=== PATIENT | male | born 1935 | race Caucasian/White ===

== ENCOUNTER 2016-04-19 01:32 | Inpatient (IN) ==
--- NOTE | 2016-04-19 02:07 | Emergency Department Note ---
Weakness HPI - General Chief complaint: Weakness Stated complaint: weakness Time Seen by Provider: 04/19/16 01:51 Source: patient Mode of arrival: ambulatory Limitations: no limitations - History of Present Illness HPI Narrative: 81-year-old male having increased weakness. Been treated by wound care, IV antibiotics in his right lower leg with 2 IV antibiotics. Patient was also seen on 04/16. for uti and treated with Macrobid. In addition to the IV antibiotics. Initial culture reveals Proteus awaiting for results of the sensitivity. Patient is afebrile. Denies any cough denies pain patient will be undergoing hyperbaric's at wound care soon. on Daptomycin and Maxipen outpatient daily. - Related Data Home Medications Medication Instructions Recorded Confirmed Ascorbic Acid [Vitamin C] 1,000 mg PO DAILY 03/21/16 03/24/16 Atorvastatin [Lipitor] 10 mg PO HS 03/21/16 03/24/16 Brimonidine Tartrate/Timolol 1 drop BOTH EYES DAILY 03/21/16 03/24/16 [Combigan Eye Drops] Esomeprazole Magnesium [Nexium] 40 mg PO DAILY 03/21/16 03/24/16 Ferrous Gluconate [Fergon] 324 mg PO BID 03/21/16 03/24/16 Fesoterodine Fumarate [Toviaz] 4 mg PO DAILY 03/21/16 03/24/16 Furosemide [Lasix] 40 mg PO DAILY 03/21/16 03/24/16 Insulin Glargine, Human [Lantus] 29 unit SQ DAILY 03/21/16 03/24/16 Minocycline [Minocin] 100 mg PO BID 03/21/16 03/24/16 Sertraline [Zoloft] 25 mg PO DAILY 03/21/16 03/24/16 Tamsulosin [Flomax] 0.4 mg PO HS 03/21/16 03/24/16 Travoprost Ophth Drops [Travatan Z 1 drop AU HS 03/21/16 03/24/16 Ophth Drops] glyBURIDE [Diabeta] 5 mg PO BIDAC 03/21/16 03/24/16 Previous Rx's Medication Instructions Recorded Nitrofurantoin Sr [Macrobid] 100 mg PO BID #20 capsule NS 04/16/16 Allergies Allergy/AdvReac Type Severity Reaction Status Date / Time No Known Drug Allergies Allergy Verified 01/08/17 09:49 Review of Systems All systems ED: reviewed and negative except as stated. Constitutional: Denies: fever, chills Eyes: Denies: eye pain ENT ED: Denies: ear pain Cardiovascular: Denies: chest pain Respiratory: Denies: cough Gastrointestinal: Denies: abdominal pain Genitourinary: Denies: urgency Musculoskeletal: Reports: as per HPI. Denies: back pain Integumentary: Denies: rash Neurological: Denies: headache Psychiatric: Denies: anxiety Endocrine: Denies: fatigue Hematological/Lymphatic: Denies: easy bleeding Allergic/Immunologic: Denies: facial swelling Past Medical History - Past Medical History Medical history: Reports: diabetes (insulin-dependent), hyperlipidemia, hypertension, TIA, other (large prostate) Surgical history ED: Reports: angioplasty/stent, cataract - Social History Alcohol use: Reports: None Drug use: Reports: none Physical Exam - General Limitations: no limitations General appearance: alert - Head Head exam: atraumatic - Eye Eye exam: Present: normal appearance, PERRL - ENT ENT exam: normal exam, normal oropharynx - Neck Neck exam: Present: normal inspection, full ROM, trachea midline - Chest Chest inspection: Present: normal inspection, symmetric chest wall rise - Respiratory Respiratory exam: Present: normal lung sounds bilaterally. Absent: respiratory distress - Cardiovascular Cardiovascular exam: Present: regular rate, normal rhythm - Abdominal Exam Abdominal exam: Present: soft. Absent: distention, tenderness - exam: Present: normal inspection - Extremities Exam Extremities exam: Present: normal inspection - Back Exam Back exam: Present: normal inspection, full ROM - Neurological Exam Neurological exam: Present: alert, oriented X3 - Psychiatric Psychiatric exam: Present: normal affect, normal mood - Skin Skin exam: Present: warm, dry, intact, normal color Course Vital Signs Temperature 96.9 F L 04/19/16 01:33 Pulse Rate 69 04/19/16 01:33 Respiratory Rate 18 04/19/16 01:33 Blood Pressure 101/57 04/19/16 01:33 Pulse Oximetry (%) 99 04/19/16 01:33 Temperature 97.3 F L 04/19/16 04:41 Pulse Rate 74 04/19/16 07:36 Respiratory Rate 18 04/19/16 01:33 Blood Pressure 139/71 04/19/16 07:36 Pulse Oximetry (%) 99 04/19/16 07:36 Weakness - MDM Narrative Medical decision making narrative: Chest x-ray and laboratory tests are normal. Vital signs are stable. However, patient has been increasingly weak Dr Shin contacted and he will consult on patient. Dr Jackman contacted and patient admitted - Lab Data Result diagrams: 04/19/16 02:45 04/19/16 02:45 Lab Results 04/19/16 04/19/16 04/19/16 Range/Units 02:45 02:45 02:45 WBC 8.8 (4.5-11.0) K/mcL RBC 3.21 L (4.50-5.90) M/mcL Hgb 9.2 L (13.5-16.5) g/dL Hct 28.3 L (41.0-55.0) % MCV 88.3 (80.0-100.0) fL MCH 28.8 (26.0-34.0) pg MCHC 32.6 (31.0-36.0) g/dL RDW 17.1 H (11.5-14.5) % Plt Count 260 (140-440) K/mcL MPV 6.8 L (7.4-10.4) fL Total Counted 100 Seg Neutrophils % 54 (38-78) % Band Neutrophils % Not Reportable Lymphocytes % 36 (15-49) % Monocytes % (Manual) 6 (1-9) % Eosinophils % (Manual) 4 (0-7) % Platelet Estimate Normal (NORMAL) RBC Morphology Abnorm A (NORMAL) Anisocytosis 1+ A (NONE SEEN) VBG Lactic Acid 1.1 (0.5-2.2) mmol/L Sodium 134 (133-145) mmol/L Potassium 4.0 (3.3-5.1) mmol/L Chloride 93 L (96-108) mmol/L Carbon Dioxide 29 (22-30) mmol/L Anion Gap 12.0 (8-16) BUN 38 H (8-23) mg/dl Creatinine 1.6 H (0.7-1.2) mg/dl GFR Calculation 39 Glucose 217 H (70-105) mg/dL Calcium 8.6 (8.6-10.4) mg/dl Total Bilirubin 0.2 (0.0-1.0) mg/dL AST 37 (0-37) U/l ALT 18 (0-40) U/l Alkaline Phosphatase 91 (39-117) U/L Total Protein 6.6 (5.9-8.4) gm/dL Albumin 3.2 (3.2-5.2) gm/dL Globulin 3.4 (2.2-3.7) gm/dL Albumin/Globulin Ratio 0.9 L (1.0-2.3) Urine Color Urine Appearance Urine pH (5.0-9.0) Ur Specific [place] (1.000-1.035) Urine Protein (NEG) mg/dL Urine Glucose (UA) (NEG) mg/dL Urine Ketones (NEG) mg/dL Urine Occult Blood (<0.03) mg/dL Urine Nitrate (NEG) Urine Bilirubin (NEG) mg/dL Urine Urobilinogen (NEG) mg/dL Ur Leukocyte Esterase (NEG) /uL Urine RBC (0-1) /hpf Urine WBC (0-4) /hpf Ur Squamous Epith Cells (0-4) /hpf Ur Transition Epith Cell (0-2) /hpf Urine Bacteria (0) /hpf Hyaline Casts (0-2) /lpf Urine Mucus (0) /hpf Ur Culture Indicated? 04/19/16 Range/Units 03:08 WBC (4.5-11.0) K/mcL RBC (4.50-5.90) M/mcL Hgb (13.5-16.5) g/dL Hct (41.0-55.0) % MCV (80.0-100.0) fL MCH (26.0-34.0) pg MCHC (31.0-36.0) g/dL RDW (11.5-14.5) % Plt Count (140-440) K/mcL MPV (7.4-10.4) fL Total Counted Seg Neutrophils % (38-78) % Band Neutrophils % Lymphocytes % (15-49) % Monocytes % (Manual) (1-9) % Eosinophils % (Manual) (0-7) % Platelet Estimate (NORMAL) RBC Morphology (NORMAL) Anisocytosis (NONE SEEN) VBG Lactic Acid (0.5-2.2) mmol/L Sodium (133-145) mmol/L Potassium (3.3-5.1) mmol/L Chloride (96-108) mmol/L Carbon Dioxide (22-30) mmol/L Anion Gap (8-16) BUN (8-23) mg/dl Creatinine (0.7-1.2) mg/dl GFR Calculation Glucose (70-105) mg/dL Calcium (8.6-10.4) mg/dl Total Bilirubin (0.0-1.0) mg/dL AST (0-37) U/l ALT (0-40) U/l Alkaline Phosphatase (39-117) U/L Total Protein (5.9-8.4) gm/dL Albumin (3.2-5.2) gm/dL Globulin (2.2-3.7) gm/dL Albumin/Globulin Ratio (1.0-2.3) Urine Color Yellow Urine Appearance Clear Urine pH 6.0 (5.0-9.0) Ur Specific [place] 1.014 (1.000-1.035) Urine Protein Neg (NEG) mg/dL Urine Glucose (UA) >=500 A (NEG) mg/dL Urine Ketones Neg (NEG) mg/dL Urine Occult Blood 0.2 A (<0.03) mg/dL Urine Nitrate Neg (NEG) Urine Bilirubin Neg (NEG) mg/dL Urine Urobilinogen Neg (NEG) mg/dL Ur Leukocyte Esterase Neg (NEG) /uL Urine RBC 18 H (0-1) /hpf Urine WBC 2 (0-4) /hpf Ur Squamous Epith Cells < 1 (0-4) /hpf Ur Transition Epith Cell < 1 (0-2) /hpf Urine Bacteria 0 (0) /hpf Hyaline Casts 3 H (0-2) /lpf Urine Mucus Few (0) /hpf Ur Culture Indicated? No Disposition Clinical Impression: Cellulitis Summary: failed outpatient therapy maxipine and daptomycin Disposition: Xfer As Outpt/Obs ([facility]) Referrals: Ashely Dunham ARNP [Primary Care Provider] -
[2016-04-19 03:58] LABS: Mean Cell Volume 88.3 fL (80.0-100.0); Mean Corpuscular HGB Conc 32.6 g/dL (31.0-36.0); Mean Corpuscular Hemoglobin 28.8 pg (26.0-34.0); Platelet Count 260 K/mcL (140-440); RBC 3.21 M/mcL (4.50-5.90); Red Cell Distribution Width 17.1 % (11.5-14.5)
[2016-04-19 04:00] LABS: Appearance,Urine CLEAR; Bacteria,Urine 0 /hpf (0); Bilirubin,Urine NEG (NEG); Color,Urine YELLOW; Glucose,Urine (UA) >=500 mg/dL (NEG); Leukocyte Esterase,Urine NEG /uL (NEG); Mucus,Urine FEW /hpf (0); Nitrate,Urine NEG (NEG); Protein,Urine NEG (NEG); Specific Gravity,Urine 1.014 (1.000-1.035); Urine Blood 0.2 mg/dL (<0.03); Urine Hyaline Cast 3 /lpf (0-2); Urine RBC 18 /hpf (0-1); Urine Squamous Epithelial Cell < 1 /hpf (0-4); Urine Transitional Epi Cells < 1 /hpf (0-2); Urine WBC 2 /hpf (0-4); Urobilinogen,Urine NEG (NEG)
[2016-04-19 04:01] LABS: ALT/SGPT 18 U/l (0-40); Albumin 3.2 gm/dL (3.2-5.2); Albumin/Globulin Ratio 0.9 (1.0-2.3); Alkaline Phosphatase 91 U/L (39-117); Blood Urea Nitrogen 38 mg/dl (8-23)
[2016-04-19 04:28] LABS: Anisocytosis 1+ (NONE SEEN); Eosinophils % (Manual) 4 % (0-7); Lymphocytes % 36 % (15-49); Monocytes % (Manual) 6 % (1-9); Platelet Estimate NORMAL (NORMAL); RBC Morphology ABNORM (NORMAL); Segmented Neutrophils % 54 % (38-78)
--- NOTE | 2016-04-19 05:45 | XRay Report ---
CLINICAL INFORMATION: Chest pain TECHNIQUE: AP portable upright chest x-ray COMPARISON: 03/21/2016 FINDINGS: Right-sided PICC line with its tip superior vena cava. Mildly elevated left hemidiaphragm, unchanged. No acute or focal pulmonary parenchymal infiltrate or mass. Lungs are negative. Heart size and vascularity are normal. No pulmonary congestion. No pulmonary edema. IMPRESSION: No acute abnormality. No interval change since 03/21/2016. Interpreted and Authenticated by: Ernst Milligan 04/19/16
[2016-04-19] MEDS ORDERED: 0.9 % SODIUM CHLORIDE 1,000 ML IV ONE ×3 (06:44→18:06)
[2016-04-19] MEDS ORDERED: ONDANSETRON 4 MG/2 ML VIAL IV PRN (09:19)
[2016-04-19] MEDS ORDERED: VANCOMYCIN PER PHARMACY IV ONE (09:19)
[2016-04-19] MEDS ORDERED: ACETAMINOPHEN 1,000 MG/100 ML BOTTLE IV PRN (09:19)
[2016-04-19] MEDS ORDERED: DEXTROSE 50% 50 ML VIAL IV PRN (09:19)
[2016-04-19] MEDS ORDERED: ACETAMINOPHEN 325 MG TABLET PO PRN (09:19)
[2016-04-19] MEDS ORDERED: BISACODYL 10 MG SUPP.RECT PR PRN (09:19)
[2016-04-19 09:58] LABS: C-Reactive Protein 1.3 mg/dl (0.0-0.8)
[2016-04-19] MEDS: 0.9 % SODIUM CHLORIDE 1,000 ML IV SCH (10:53)
[2016-04-19] MEDS: CEFEPIME 1 GM in DEXTROSE 5% IN WATER 50 ML IV SCH (10:54)
[2016-04-19] MEDS: sitaGLIPtin 50 MG TABLET PO SCH (11:09)
[2016-04-19] MEDS: HEPARIN 5,000 UNIT/ML VIAL SQ SCH ×2 (11:09→21:51)
[2016-04-19] MEDS: FOLIC ACID 1 MG TABLET PO SCH (11:10)
[2016-04-19] MEDS: MULTIVIT,THER IRON,CA,FA & MIN 1 TABLET PO SCH (11:10)
[2016-04-19] MEDS: DOCUSATE SODIUM 100 MG CAPSULE PO SCH ×2 (11:10→21:53)
[2016-04-19] MEDS: DAPTOmycin 500 MG VIAL IV SCH (11:24)
--- NOTE | 2016-04-19 12:47 | History and Physical Report ---
DATE OF ADMISSION: 04/19/2016 REASON FOR ADMISSION: Weakness, unable to function. HISTORY OF CHIEF COMPLAINT: The patient is an 81-year-old diabetic with a history of diabetic neuropathy who developed a puncture wound right foot around early February when he was out barefoot and likely stepped on a sharp object. He, however, did not realize until 2 to 3 weeks when he was noted a significantly swollen, red right heel/midfoot at the primary care doctor's office. He was subsequently referred for evaluation and was found to have osteomyelitis of the calcaneus along with deep abscess on the MRI of 03/14. The patient subsequently underwent wound care treatment along with antibiotics. He was initially started on vancomycin and Invanz. However, he had an adverse reaction to Invanz, subsequently changed to Levaquin and vancomycin by Dr. Henry. This was continued until 04/12 when due to failure of response he was switched to daptomycin and cefepime. The patient has been getting IV antibiotics at the IV infusion center along with wound care management per Dr. Morris. Over the last couple of days, the patient has been getting progressively weak, unable to function, unable to ambulate, and with worsening symptoms came to [facility] Room. In addition to cefepime and vancomycin, he is also on Macrobid for a recent UTI on 04/16. In the ER, initial workup was essentially unremarkable with a white count of 8000. ESR 58. Normal lactic acid and normal biochemical profile except for creatinine of 1.6, which has been around baseline over the last month around 1.5. CRP 1.3. Hospitalist Service was consulted on recommendation of wound care physician in light of failure to respond to antibiotics, persistent osteomyelitis and diabetic heel ulcer and requirement for hyperbaric oxygen treatment. At the time of examination, the patient is alert, oriented, and accompanied with his granddaughter. He was able to provide answers to most of the questions. He denies fever, shaking chills, or drenching sweats. He further denies weight loss, glandular swelling, diarrhea, dysuria, headache, photophobia, chest pain, shortness of breath. He also denies skin rash and joint swelling. REVIEW OF SYSTEMS: Ten-point review of system was performed and negative except the ones discussed above. PAST MEDICAL HISTORY: 1. History of diabetes mellitus type 2. 2. Diabetic neuropathy. 3. Recent osteomyelitis. 4. BPH. 5. Anxiety disorder. 6. Glaucoma. 7. GERD. CURRENT MEDICATIONS: 1. Travatan both eyes. 2. Combigan both eyes. 3. Metronidazole 500 mg b.i.d. 4. Esomeprazole 40 mg daily. 5. Nitrofurantoin 100 mg b.i.d. 6. Atorvastatin 10 mg at bedtime. 7. Travoprost at bedtime. 8. Tamsulosin 0.4 mg. 9. Sertraline 25 mg. 10. Furosemide 40 mg. 11. Ferrous gluconate 324 mg. 12. Ascorbic acid 1000 mg. 13. Minocycline 100 mg b.i.d. 14. Glyburide 5 mg b.i.d. 15. Glargine 29 units daily. SOCIAL HISTORY: The patient lives currently with his son and recently he was living with his daughter. He has been to multiple places, originally from [place] and then has been moved since his in 2009 to [place], [place], [place] and back in [place]. No history of smoking or alcoholism. She sees primary care physician, SIERRA Warren. FAMILY HISTORY: Significant for sister with multiple sclerosis. PHYSICAL EXAMINATION: GENERAL: The patient is alert and oriented. He denies any active distress. BMI 22. Height 6 feet 2 inches. VITAL SIGNS: Blood pressure 137/76, respiratory rate 20, temperature 97.4, pulse 76, and saturation 97% on room air. HEENT: Pupils symmetric. Oral cavity is dry. No ear or nose discharge. Head is normocephalic and atraumatic. NECK: No lymphadenopathy. HEART: S1, S2, regular rhythm. Ejection systolic murmur grade 1. Diminished breath sounds at bases. ABDOMEN: Soft and nontender. LOWER EXTREMITIES: Right lower extremity heel along with foot covered in sterile dressing, erythema around induration and swelling extended up to 10 cm above the ankle on the right side. Left lower extremity, no signs of skin changes, joint swelling or erythema. No cyanosis or clubbing. No lymphedema. PSYCH: Alert and cooperative. No anxiety. NEURO: Nonfocal, moving all four extremities. LABS AND IMAGING: White count 8.8, hemoglobin 9.2, platelets 260. ESR 58. Lactic acid 1.1. Sodium 130, potassium 4.4, creatinine 1.6, BUN 38. CRP 1.3. UA unremarkable. X-ray chest: No acute process. ASSESSMENT AND PLAN: An 81-year-old with calcaneal osteomyelitis and foot abscess on long-term antibiotic coverage managed as an outpatient. Now is admitted with inability to bear weight, weakness and worsening lower extremity cellulitis. 1. Right lower extremity cellulitis with calcaneal osteomyelitis/midfoot abscess. Continue cefepime along with daptomycin as per Dr. Henry. The patient will continue wound care along with dressings and debridement as needed by Dr. Morris and will also receive hyperbaric oxygen treatments. 2. Other prior medical issues, including: a. History of diabetes mellitus type 2. Continue basal prandial insulin/sitagliptin. b. History of chronic kidney disease, creatinine at baseline. Likely secondary to diabetic nephropathy. c. Anxiety disorder. Continue sertraline. d. Glaucoma. Continue travoprost. e. BPH. Continue tamsulosin. f. Hyperlipidemia. Continue statin. PLAN FOR TODAY: 1. Admit as inpatient. 2. Wound Care consult. 3. Continue antibiotic coverage as per Infectious Disease specialist Dr. Henry's recommendation, including daptomycin and cefepime. 4. DVT prophylaxis on heparin. 5. Preexisting medical condition management as above. AA:[email or web address] Job ID: [id number] Doc ID: [id number] Toni Dunham NP MTDD
[2016-04-19] MEDS: 0.9 % SODIUM CHLORIDE 10 ML SYRINGE IV SCH ×2 (14:57→22:02)
[2016-04-19] MEDS: INSULIN LISPRO 1 UNIT/0.01 ML UNIT SQ SCH ×3 (14:57→21:53)
--- NOTE | 2016-04-19 16:44 | General Surgery Consult Note ---
History of Present Illness Patient information: Note initiated : 04/19/16 at 4:41 pm Service Date, if different from initiated Date: [] Patient: Roverto Marley 81 y/o M admitted on 04/19/16 for weakness. Chief Complaint: [] Requesting physician: Toni Lao History of present illness: Extreme weakness and frequent falls. DFU, Right ankle with osteomyelitis Calcaneal / Talus area. Open wound lateral aspect of right heel. Medications and Allergies Home Medications Medication Instructions Recorded Confirmed Type Ascorbic Acid [Vitamin C] 1,000 mg PO DAILY 03/21/16 04/19/16 History Atorvastatin [Lipitor] 10 mg PO HS 03/21/16 04/19/16 History Esomeprazole Magnesium [Nexium] 40 mg PO DAILY 03/21/16 04/19/16 History Ferrous Gluconate [Fergon] 324 mg PO BID 03/21/16 04/19/16 History Furosemide [Lasix] 40 mg PO DAILY 03/21/16 04/19/16 History Insulin Glargine, Human [Lantus] 29 unit SQ DAILY 03/21/16 04/19/16 History Minocycline [Minocin] 100 mg PO BID 03/21/16 04/19/16 History Sertraline [Zoloft] 25 mg PO DAILY 03/21/16 04/19/16 History Tamsulosin [Flomax] 0.4 mg PO HS 03/21/16 04/19/16 History Travoprost Ophth Drops [Travatan Z 1 drop AU HS 03/21/16 04/19/16 History Ophth Drops] glyBURIDE [Diabeta] 5 mg PO BIDAC 03/21/16 04/19/16 History Combigan 0.2%-0.5% Eye Drops 1 drop BOTH EYES BID 04/19/16 04/19/16 History Travatan Z Ophth Drops 1 drop BOTH EYES HS 04/19/16 04/19/16 History metroNIDAZOLE 500 mg PO BID 04/19/16 04/19/16 History Allergies Allergy/AdvReac Type Severity Reaction Status Date / Time No Known Drug Allergies Allergy Verified 03/24/16 09:49 Exam Temp Pulse Resp BP Pulse Ox 97.0 F L 84 16 138/60 94 04/19/16 12:10 04/19/16 12:10 04/19/16 12:10 04/19/16 12:10 04/19/16 12:10 - General physical appearance well developed, well nourished, moderate pain, chronically ill, other ( frequent falling at home) - Eyes PERRL, normal ocular movement - ENT normal pinna, normal nares, normal mucosa, no congestion - Head Head exam IM: Present: atraumatic, normal inspection, normocephalic - Neck no masses, no bruits, trachea midline, no lymphadectomy, no venous distension - Cardiovascular Cardiovascular exam IM: Present: normal rate and rhythm - Respiratory normal expansion, clear to auscultation - Abdomen Abdomen: Present: soft, non tender, bowel sounds - Integumentary Present: other (ulcerated wound lateral aspect of the right ankle, below the lateral malleolus. This leads into a cavity of osteomyelitis and has intermittent drainage of sequestrated material) - Neurologic Present: confused (Non focal and non-lateralizing neurological examination), other - Musculoskeletal Present: other (Spinal curvature deformities. needs a front wheel walkerfor support during ambulation. Healing and improving superficial abrasions of fore arms. ) - Psychiatric Present: oriented to time, oriented to person, speech is normal Results - Labs 04/20/16 05:55 04/20/16 05:55 All other labs normal. Assessment and Plan (1) Diabetes mellitus with foot ulcer due to multiple causes Status: Acute Priority: High
[2016-04-19] MEDS ORDERED: glyBURIDE 5 MG TABLET PO SCH (17:00)
[2016-04-19] MEDS ORDERED: TRAVOPROST OPHTH DROPS BOTTLE 2.5ML OU SCH (21:00)
[2016-04-19] MEDS: ATORVASTATIN 20 MG TABLET PO SCH (21:52)
[2016-04-19] MEDS: TAMSULOSIN 0.4 MG CAPSULE PO SCH (21:52)
[2016-04-19] MEDS: SENNOSIDES/DOCUSATE SODIUM 1 TAB TABLET PO SCH (21:52)
[2016-04-19] MEDS: TRAVOPROST OPHTH DROPS BOTTLE 2.5ML OU SCH (21:59)
[2016-04-20] MEDS: 0.9 % SODIUM CHLORIDE 10 ML SYRINGE IV SCH ×3 (05:33→22:00)
[2016-04-20] MEDS: 0.9 % SODIUM CHLORIDE 1,000 ML IV SCH (05:33)
[2016-04-20 08:26] LABS: Mean Cell Volume 86.7 fL (80.0-100.0); Mean Corpuscular HGB Conc 33.6 g/dL (31.0-36.0); Mean Corpuscular Hemoglobin 29.1 pg (26.0-34.0); Platelet Count 186 K/mcL (140-440); RBC 2.82 M/mcL (4.50-5.90); Red Cell Distribution Width 16.2 % (11.5-14.5)
[2016-04-20 08:36] LABS: ALT/SGPT 18 U/l (0-40); Albumin 2.7 gm/dL (3.2-5.2); Albumin/Globulin Ratio 0.9 (1.0-2.3); Alkaline Phosphatase 70 U/L (39-117); Bilirubin,Direct < 0.2 mg/dL (0.0-0.3); Blood Urea Nitrogen 27 mg/dl (8-23); Gamma Glutamyl Transpeptidase 14 U/L (8-61); Magnesium 2.2 mg/dL (1.6-2.5); Phosphorous 2.6 mg/dL (2.7-4.5); Uric Acid 4.9 mg/dL (2.5-8.0)
[2016-04-20] MEDS: INSULIN LISPRO 1 UNIT/0.01 ML UNIT SQ SCH ×4 (08:36→21:37)
[2016-04-20] MEDS: INSULIN GLARGINE, HUMAN 1 UNIT/0.01 ML SQ SCH (08:37)
[2016-04-20] MEDS: CEFEPIME 1 GM in DEXTROSE 5% IN WATER 50 ML IV SCH (08:38)
[2016-04-20] MEDS: HEPARIN 5,000 UNIT/ML VIAL SQ SCH ×2 (08:38→21:37)
[2016-04-20] MEDS: PANTOPRAZOLE 40 MG TABLET PO SCH (08:41)
[2016-04-20] MEDS: DOCUSATE SODIUM 100 MG CAPSULE PO SCH ×2 (08:41→21:37)
[2016-04-20] MEDS: MULTIVIT,THER IRON,CA,FA & MIN 1 TABLET PO SCH (08:43)
[2016-04-20] MEDS: sitaGLIPtin 50 MG TABLET PO SCH (08:43)
[2016-04-20] MEDS: ASCORBIC ACID 500 MG TABLET PO SCH (08:43)
[2016-04-20] MEDS: FOLIC ACID 1 MG TABLET PO SCH (08:44)
[2016-04-20] MEDS: SERTRALINE 50 MG TABLET PO SCH (08:44)
[2016-04-20] MEDS: FUROSEMIDE 40 MG TABLET PO SCH (08:45)
[2016-04-20 08:55] LABS: Hemoglobin A1C 8.2 % HGB (4.0-6.0)
[2016-04-20] MEDS ORDERED: ESOMEPRAZOLE MAGNESIUM 40 MG PO SCH (09:00)
[2016-04-20 09:10] LABS: Anisocytosis 1+ (NONE SEEN); Eosinophils % (Manual) 1 % (0-7); Lymphocytes % 35 % (15-49); Monocytes % (Manual) 7 % (1-9); Platelet Estimate NORMAL (NORMAL); RBC Morphology ABNORM (NORMAL); Segmented Neutrophils % 57 % (38-78)
[2016-04-20] MEDS: DAPTOmycin 500 MG VIAL IV SCH (11:14)
[2016-04-20] MEDS ORDERED: 0.9 % SODIUM CHLORIDE 250 ML IV SCH (13:00)
--- NOTE | 2016-04-20 13:14 | Internal Med Progress Note ---
Medical - PN: Subj Patient information: Note initiated : 04/20/16 at 1:10 pm Service Date, if different from initiated Date: [] Patient: Roverto Marley 81 y/o M admitted on 04/19/16 for weakness. Chief Complaint: [] Interval history: The patient seen examined, patient had one episode of low bp responded well to 1L IV normal saline. Pt denies any new symptoms, feels doing ok The son was at bedside today, he noted that the patient has been having this infection since february and has been on antibiotics, the main reason he was brought in was worsening fatigue and debility. The patient also had an episode of syncope while he was there. Patient was sitting in the chair when he passed out for a min or so, the patient had no abnormal jerking movements, no loss of bowel bladder continence, however wears depends so not sure. The patient has had these syncope events in the past, when [facility], and has bee worked for [employer] there, As per the family mri and ct head were negative for TIA or CVA. The patient was also recently treated for a UTI with macrobid. Labs revwied Hb low at 8.2, chemistry ok ck ok cultures negative Pertinent ROS: Denies headache, dizziness Denies chest pain, palpitations Does admit to intermittent chest tightness, unrelated to activity. Denies cough or shortness of breath Denies abdominal pain, nausea or vomiting. no black stools, no blood in stools. - Constitutional Vitals: Vital Signs Temp Pulse Resp BP Pulse Ox 97.5 F L 70 14 102/64 97 04/20/16 12:00 04/20/16 12:00 04/20/16 12:00 04/20/16 12:00 04/20/16 12:00 Period Temp Pulse Resp BP Sys/Saucedo Pulse Ox Last 24 Hr 97.5 F-98.6 F 70-97 14-24 85-116/46-64 93-100 Intake and Output 04/19/16 04/20/16 04/20/16 21:59 05:59 13:59 Intake Total 600 / 600 1200 / 1200 720 / 720 Output Total 500 / 500 401 / 401 125 / 125 Balance 100 / 100 799 / 799 595 / 595 Weight 174 lb 174 lb Patient Weight 02/05/17 05:59 Weight 174 lb Intake & Output: Intake & Output 04/19/16 04/20/16 04/20/16 21:59 05:59 13:59 Intake Total 600 / 600 1200 / 1200 720 / 720 Output Total 500 / 500 401 / 401 125 / 125 Balance 100 / 100 799 / 799 595 / 595 Weight 174 lb 174 lb Intake: IV 1000 / 1000 Sodium Chloride 0.9% 1, 1000 / 1000 000 ml @ 50 mls/hr IV . Q20H [facility] Rx#:[id number] Oral 600 / 600 200 / 200 720 / 720 Output: Void Amount 500 / 500 400 / 400 125 / 125 # of times incontinent of urine Other: Meal Dinner Breakfast Percent of Meal Consumed 100% 100% Feeding Ability Independent Independent Exam: Constitutional; Afebrile, cooperative, alert, not in distress. Eyes- No icterus, Pupils equal, reactive, No periorbital swelling Ears- Ext ear normal, Neck- Midline trachea, supple Respiratory system: Air Entry equal on both sides, No crackles or wheezing, no rhonchi. CVS- Rate rhythm regular, S1,S2 heard, distant heart sounds. 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 Medical - PN: Obj Da - Labs CBC & Chem 7: 04/20/16 05:55 04/20/16 05:55 Labs: Abnormal Lab Results 04/20/16 04/20/16 04/20/16 05:55 05:55 05:54 RBC 2.82 L Hgb 8.2 L Hct 24.5 L RDW 16.2 H MPV 7.2 L RBC Morphology Abnorm A Anisocytosis 1+ A BUN 27 H Creatinine 1.3 H Glucose 144 H Hemoglobin A1c 8.2 H Calcium 8.2 L Phosphorus 2.6 L Total Protein 5.6 L Albumin 2.7 L Albumin/Globulin Ratio 0.9 L Meds: Medications Acetaminophen (Tylenol) 650 mg PO Q4-6HP PRN PRN Reason: PAIN/FEVER > 101 Ascorbic Acid (Vitamin C) 1,000 mg PO DAILY [facility] Last Admin: 04/20/16 08:43 Dose: 1,000 mg Atorvastatin Calcium (Lipitor) 10 mg PO HS [facility] Last Admin: 04/19/16 21:52 Dose: 10 mg Bisacodyl (Dulcolax) 10 mg ID Q2-3DAYS PRN PRN Reason: Constipation Daptomycin (Cubicin) 500 mg IV DAILY [facility] Last Admin: 04/20/16 11:14 Dose: 500 mg Dextrose (Dextrose 50%) 0 ml IV UD PRN PRN Reason: Hypoglycemia Diagnostic Test (Pha) (Accu-Chek) 1 each FS ACHS [facility] Last Admin: 04/20/16 12:22 Dose: 1 each Docusate Sodium (Colace) 100 mg PO BID [facility] Last Admin: 04/20/16 08:41 Dose: 100 mg Folic Acid (Folic Acid) 1 mg PO DAILY [facility] Last Admin: 04/20/16 08:44 Dose: 1 mg Furosemide (Lasix) 40 mg PO DAILY [facility] Last Admin: 04/20/16 08:45 Dose: Not Given Heparin Sodium (Porcine) (Heparin) 5,000 unit SQ Q12 [facility] Last Admin: 04/20/16 08:38 Dose: 5,000 unit Sodium Chloride (Sodium Chloride 0.9%) 1,000 mls @ 50 mls/hr IV .Q20H [facility] Stop: 04/21/16 21:18 Last Admin: 04/20/16 05:33 Dose: 50 mls/hr Acetaminophen (Ofirmev) 1,000 mg in 100 mls @ 200 mls/hr IV Q6HP PRN PRN Reason: PAIN/FEVER > 101 Cefepime HCl 1 gm/ Dextrose 50 mls @ 100 mls/hr IV DAILY [facility] Last Admin: 04/20/16 08:38 Dose: 100 mls/hr Sodium Chloride (Sodium Chloride 0.9%) 250 mls @ 20 mls/hr IV .[id number] [facility] Stop: 04/21/16 01:29 Insulin Glargine (Lantus) 29 unit SQ DAILY [facility] Last Admin: 04/20/16 08:37 Dose: 29 unit Insulin Human Lispro (Humalog) 0 unit SQ ACHS [facility] PRN Reason: Protocol Last Admin: 04/20/16 12:22 Dose: 2 unit Iron Carb/Multivit/[place]/Folic Acid (Multivitamin W/Minerals) 1 tab PO DAILY [facility] Last Admin: 04/20/16 08:43 Dose: 1 tab Ondansetron HCl (Zofran) 4 mg IV Q4-6HP PRN PRN Reason: Nausea And Vomiting Pantoprazole Sodium (Protonix) 40 mg PO QAMAC [facility] Last Admin: 04/20/16 08:41 Dose: 40 mg Combigan 0.2%-0.5% (Eye Drops) 1 dose OU BID [facility] Last Admin: 04/20/16 08:37 Dose: 1 dose Senna/Docusate Sodium (Senna Plus Tablet) 1 tab PO HS [facility] Last Admin: 04/19/16 21:52 Dose: 1 tab Sertraline HCl (Zoloft) 25 mg PO DAILY [facility] Last Admin: 04/20/16 08:44 Dose: 25 mg Sitagliptin Phosphate (Januvia) 50 mg PO DAILY [facility] Last Admin: 04/20/16 08:43 Dose: 50 mg Sodium Chloride (Saline Flush) 10 ml IV Q8 [facility] Last Admin: 04/20/16 05:33 Dose: 10 ml Tamsulosin HCl (Flomax) 0.4 mg PO [facility] Last Admin: 04/19/16 21:52 Dose: 0.4 mg Travoprost (Travatan Z Ophth Drops) 1 gtt OU [facility] Last Admin: 04/19/16 21:59 Dose: 1 gtt Medical - PN: A/P - Time Spent With Patient Total time spent is greater than 50% in coordination of care (as documented) at patient's floor/unit and/or counseling patient: (1) Syncope and collapse Status: Acute Current Visit: Yes (2) Anemia Status: Acute Current Visit: Yes (3) Fatigue Status: Acute Current Visit: Yes (4) Cellulitis Status: Acute Current Visit: Yes (5) 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 Status: Acute Current Visit: Yes - Narrative A/P Narrative: Patient presents with cellutitis, not improving Ostemyeltis despite IV antibiotics On IV cefepime and daptomycin as per ID and Wound care clnic Glucose ok, d/c sitaglipitin while inpatient Syncope- MR head in past is negative, plan to repeat workup, get ekg, echo, carotid duplex, and CT head. Pt does have h/o cad and s/p stent placement, asa is not on the med list, hold off till we have FOB negative. already on statin. consider use of beta blockers if BP allows in future. 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 Fatigue, multifactorial, recovering from UTI, active osteomyelitis, Age, Anemia , are all possible, check tsh for now. DVT hep sq Diet Diabetic diet Plan for the patients wound care is to have HBOT by wound care clinic. Medical - PN: Qual - VTE Deep Vein Thrombosis/Pulmonary Embolism Present on Admission: No
--- NOTE | 2016-04-20 14:47 | Cat Scan Report ---
CLINICAL INFORMATION: Syncope COMPARISON: None. TECHNIQUE: Axial noncontrast-enhanced images through the brain. FINDINGS: No acute intracranial hemorrhage. No intra-axial hematoma. There is enlargement of the lateral ventricles. There is periventricular low-attenuation which may represent interstitial edema. Michael's index equals 0.36. This is abnormal and suggestive of normal pressure hydrocephalus. Clinical correlation for typical symptoms necessary. No well-defined intra-axial attenuation abnormality. No localized mass effect. No midline shift. Brainstem and cerebellum are negative. No extra-axial, intracranial abnormalities. No subdural hematoma. No subarachnoid hemorrhage. Basilar cisterns are normal. No calvarial lesion. Skull base is negative. IMPRESSION: 1. No acute intracranial abnormality. 2. Enlargement of the lateral ventricles. Correlation recommended for symptoms of normal pressure hydrocephalus. Interpreted and Authenticated by: Ernst Milligan 04/20/16
--- NOTE | 2016-04-20 17:06 | Ultrasound Report ---
CLINICAL INFORMATION: Syncope COMPARISON: None. TECHNIQUE: Carotid arteries were imaged in sagittal and transverse planes using 5 mHz linear probe: Doppler, color, and 2D. FINDINGS: There is mild atherosclerotic plaque in the distal common carotid artery, left worse than right. No evidence for ulceration. No significant flow disturbance. Maximum Systolic Flow Velocity: - Right common carotid artery: 73 cm/sec - Right internal carotid artery: 75 cm/sec - Left common carotid artery: 71 cm/sec - Left internal carotid artery: 79 cm/sec Vertebral arteries are antegrade patent bilaterally. IMPRESSION: 1. Mild atherosclerotic plaque in the proximal internal carotid arteries, left worse than right 2. No flow disturbance. No hemodynamically significant stenosis Interpreted and Authenticated by: Ernst Milligan 04/20/16
[2016-04-20] MEDS: TRAVOPROST OPHTH DROPS BOTTLE 2.5ML OU SCH (21:00)
[2016-04-20] MEDS: ATORVASTATIN 20 MG TABLET PO SCH (21:37)
[2016-04-20] MEDS: TAMSULOSIN 0.4 MG CAPSULE PO SCH (21:37)
[2016-04-20] MEDS: SENNOSIDES/DOCUSATE SODIUM 1 TAB TABLET PO SCH (21:37)
[2016-04-21] MEDS: 0.9 % SODIUM CHLORIDE 1,000 ML IV SCH (01:07)
[2016-04-21] MEDS: 0.9 % SODIUM CHLORIDE 10 ML SYRINGE IV SCH ×3 (05:20→21:10)
[2016-04-21 06:22] LABS: Mean Corpuscular HGB Conc 33.7 g/dL (31.0-36.0); Platelet Count 216 K/mcL (140-440); RBC 3.49 M/mcL (4.50-5.90); Red Cell Distribution Width 15.3 % (11.5-14.5)
[2016-04-21 06:54] LABS: ALT/SGPT 19 U/l (0-40); Albumin 2.7 gm/dL (3.2-5.2); Albumin/Globulin Ratio 0.8 (1.0-2.3); Alkaline Phosphatase 73 U/L (39-117); Bilirubin,Direct < 0.2 mg/dL (0.0-0.3); Blood Urea Nitrogen 24 mg/dl (8-23); Gamma Glutamyl Transpeptidase 16 U/L (8-61); Magnesium 2.2 mg/dL (1.6-2.5); Phosphorous 2.6 mg/dL (2.7-4.5); Uric Acid 4.6 mg/dL (2.5-8.0)
[2016-04-21] MEDS: PANTOPRAZOLE 40 MG TABLET PO SCH (07:32)
[2016-04-21] MEDS: INSULIN LISPRO 1 UNIT/0.01 ML UNIT SQ SCH ×4 (07:32→21:10)
[2016-04-21 07:43] LABS: Band Neutrophils % 1 % (0-10); Basophils % (Manual) 1 % (0-2); Eosinophils % (Manual) 2 % (0-7); Lymphocytes % 35 % (15-49); Monocytes % (Manual) 11 % (1-9); Platelet Estimate NORMAL (NORMAL); RBC Morphology NORMAL (NORMAL); Segmented Neutrophils % 50 % (38-78)
[2016-04-21] MEDS: CEFEPIME 1 GM in DEXTROSE 5% IN WATER 50 ML IV SCH (09:01)
[2016-04-21] MEDS: INSULIN GLARGINE, HUMAN 1 UNIT/0.01 ML SQ SCH (09:01)
[2016-04-21] MEDS: ASCORBIC ACID 500 MG TABLET PO SCH (09:02)
[2016-04-21] MEDS: FOLIC ACID 1 MG TABLET PO SCH (09:02)
[2016-04-21] MEDS: HEPARIN 5,000 UNIT/ML VIAL SQ SCH ×2 (09:02→21:10)
[2016-04-21] MEDS: FUROSEMIDE 40 MG TABLET PO SCH (09:03)
[2016-04-21] MEDS: SERTRALINE 50 MG TABLET PO SCH (09:03)
[2016-04-21] MEDS: MULTIVIT,THER IRON,CA,FA & MIN 1 TABLET PO SCH (09:03)
[2016-04-21] MEDS: DOCUSATE SODIUM 100 MG CAPSULE PO SCH ×2 (09:04→21:09)
[2016-04-21] MEDS: DAPTOmycin 500 MG VIAL IV SCH (09:11)
--- NOTE | 2016-04-21 12:02 | General Surgery Progress Note ---
Subjective Patient reports: other (Comfortable. Denies pain. OOB in Chair . Reading Bible. Transfused 2 units of PRBC overnight. AirCast boot X large at bedside for ambulation. Physical therapy on board. Spoke with [facility] Physical Therapist. ) Narrative: Note initiated : 04/21/16 at 12:00 pm Service Date, if different from initiated Date: [] Patient: Roverto Marley 81 y/o M admitted on 04/19/16 for weakness. Chief Complaint: [] Objective Temp Pulse Resp BP Pulse Ox 98.5 F 87 24 138/66 95 04/21/16 08:00 04/21/16 08:00 04/21/16 08:00 04/21/16 08:00 04/21/16 08:00 AVSS. MM pink. HD stable. Chest CTA. Soft abdomen. Skin left fore arm abrasions are clean and dry. Dressing right foot intact and in place. - Additional Data Intake & Output - Last 24 hours: Intake & Output 04/19/16 04/20/16 04/21/16 04/22/16 05:59 05:59 05:59 05:59 Intake Total 2850 / 2850 2345 / 2345 Output Total 901 / 901 376 / 376 Balance 194 / 1948 1968 / 1968 Weight 174 lb 173 lb 8 oz - Labs 04/21/16 04:50 04/21/16 04:50 Diabetes panel 04/21/16 Range/Units 04:50 Sodium 138 (133-145) mmol/L Potassium 4.6 (3.3-5.1) mmol/L Chloride 102 (96-108) mmol/L Carbon Dioxide 24 (22-30) mmol/L BUN 24 H (8-23) mg/dl Creatinine 1.4 H (0.7-1.2) mg/dl Glucose 105 (70-105) mg/dL Calcium 8.2 L (8.6-10.4) mg/dl AST 33 (0-37) U/l ALT 19 (0-40) U/l Alkaline Phosphatase 73 (39-117) U/L Total Protein 5.9 (5.9-8.4) gm/dL Albumin 2.7 L (3.2-5.2) gm/dL Triglycerides 63 (<150) mg/dl Thyroid panel 04/21/16 Range/Units 04:50 TSH 2.43 (0.27-5.01) uIU/ml Calcium panel 04/21/16 Range/Units 04:50 Calcium 8.2 L (8.6-10.4) mg/dl Phosphorus 2.6 L (2.7-4.5) mg/dL Albumin 2.7 L (3.2-5.2) gm/dL Pituitary panel 04/21/16 Range/Units 04:50 Sodium 138 (133-145) mmol/L Potassium 4.6 (3.3-5.1) mmol/L Chloride 102 (96-108) mmol/L Carbon Dioxide 24 (22-30) mmol/L BUN 24 H (8-23) mg/dl Creatinine 1.4 H (0.7-1.2) mg/dl Glucose 105 (70-105) mg/dL Calcium 8.2 L (8.6-10.4) mg/dl TSH 2.43 (0.27-5.01) uIU/ml Adrenal panel 04/21/16 Range/Units 04:50 Sodium 138 (133-145) mmol/L Potassium 4.6 (3.3-5.1) mmol/L Chloride 102 (96-108) mmol/L Carbon Dioxide 24 (22-30) mmol/L BUN 24 H (8-23) mg/dl Creatinine 1.4 H (0.7-1.2) mg/dl Glucose 105 (70-105) mg/dL Calcium 8.2 L (8.6-10.4) mg/dl Total Bilirubin 0.4 (0.0-1.0) mg/dL AST 33 (0-37) U/l ALT 19 (0-40) U/l Alkaline Phosphatase 73 (39-117) U/L Total Protein 5.9 (5.9-8.4) gm/dL Albumin 2.7 L (3.2-5.2) gm/dL Medical - PN: A/P - Time Spent With Patient Total time spent is greater than 50% in coordination of care (as documented) at patient's floor/unit and/or counseling patient: Patient seen with Dr. Godoy hospitalist. Progress reviewed with Nancy PAREKH IC. To check with ID for out patient f/U CM to arrange for transfer to a [facility] or SNF. HBO to be started next week. 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
[2016-04-21] MEDS ORDERED: 0.9 % SODIUM CHLORIDE 500 ML IV ONE (13:38)
--- NOTE | 2016-04-21 14:17 | Internal Med Progress Note ---
Medical - PN: Subj Patient information: Note initiated : 04/21/16 at 2:10 pm Service Date, if different from initiated Date: [] Patient: Roverto Marley 81 y/o M admitted on 04/19/16 for weakness. Chief Complaint: [] Interval history: The patient seen examined, no acute changes, s/p 2 units blood transfusion yesterday, he looks much better today, not sure if he feels a lot better as he has not been able to move much to tell us if his fatigue is any better He had low bp this afternoon, IV fluids given, lasix held. 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 - Constitutional Vitals: Vital Signs Temp Pulse Resp BP Pulse Ox 98.6 F 74 16 92/50 97 04/21/16 13:38 04/21/16 13:38 04/21/16 13:38 04/21/16 13:40 04/21/16 13:38 Period Temp Pulse Resp BP Sys/Saucedo Pulse Ox Last 24 Hr 97.8 F-99.4 F 74-89 16-24 78-154/46-98 94-98 Intake and Output 04/21/16 04/21/16 04/21/16 05:59 13:59 21:59 Intake Total 532 / 532 Output Total 250 / 250 Balance 282 / 282 Intake & Output: Intake & Output 04/21/16 04/21/16 04/21/16 05:59 13:59 21:59 Intake Total 532 / 532 Output Total 250 / 250 Balance 282 / 282 Intake: Oral 200 / 200 Blood Product 332 / 332 Output: Void Amount 250 / 250 Exam: Constitutional; Afebrile, cooperative, alert, not in distress. Eyes- No icterus, Pupils equal, reactive, No periorbital swelling Ears- Ext ear normal, hearing normal to conversation. Neck- Midline trachea, supple Respiratory system: Air Entry equal on both sides, No crackles or wheezing, no rhonchi. CVS- Rate rhythm regular, S1,S2 heard, distant heart sounds. 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 Medical - PN: Obj Da - Labs CBC & Chem 7: 04/21/16 04:50 04/21/16 04:50 Labs: Abnormal Lab Results 04/21/16 04/21/16 04/20/16 04:50 04:50 05:55 RBC 3.49 L Hgb 10.5 L Hct 31.1 L RDW 15.3 H MPV 7.2 L Monocytes % (Manual) 11 H RBC Morphology Anisocytosis BUN 24 H 27 H Creatinine 1.4 H 1.3 H Glucose 144 H Hemoglobin A1c Calcium 8.2 L 8.2 L Phosphorus 2.6 L 2.6 L Total Protein 5.6 L Albumin 2.7 L 2.7 L Albumin/Globulin Ratio 0.8 L 0.9 L 04/20/16 04/20/16 05:55 05:54 RBC 2.82 L Hgb 8.2 L Hct 24.5 L RDW 16.2 H MPV 7.2 L Monocytes % (Manual) RBC Morphology Abnorm A Anisocytosis 1+ A BUN Creatinine Glucose Hemoglobin A1c 8.2 H Calcium Phosphorus Total Protein Albumin Albumin/Globulin Ratio Meds: Medications Acetaminophen (Tylenol) 650 mg PO Q4-6HP PRN PRN Reason: PAIN/FEVER > 101 Ascorbic Acid (Vitamin C) 1,000 mg PO DAILY [facility] Last Admin: 04/21/16 09:02 Dose: 1,000 mg Atorvastatin Calcium (Lipitor) 10 mg PO HS [facility] Last Admin: 04/20/16 21:37 Dose: 10 mg Bisacodyl (Dulcolax) 10 mg MO Q2-3DAYS PRN PRN Reason: Constipation Daptomycin (Cubicin) 500 mg IV DAILY [facility] Last Admin: 04/21/16 09:11 Dose: 500 mg Dextrose (Dextrose 50%) 0 ml IV UD PRN PRN Reason: Hypoglycemia Diagnostic Test (Pha) (Accu-Chek) 1 each FS ACHS [facility] Last Admin: 04/21/16 13:26 Dose: 1 each Docusate Sodium (Colace) 100 mg PO BID [facility] Last Admin: 04/21/16 09:04 Dose: 100 mg Folic Acid (Folic Acid) 1 mg PO DAILY [facility] Last Admin: 04/21/16 09:02 Dose: 1 mg Heparin Sodium (Porcine) (Heparin) 5,000 unit SQ Q12 [facility] Last Admin: 04/21/16 09:02 Dose: 5,000 unit Sodium Chloride (Sodium Chloride 0.9%) 1,000 mls @ 50 mls/hr IV .Q20H [facility] Stop: 04/21/16 21:18 Last Admin: 04/21/16 01:07 Dose: Not Given Acetaminophen (Ofirmev) 1,000 mg in 100 mls @ 200 mls/hr IV Q6HP PRN PRN Reason: PAIN/FEVER > 101 Cefepime HCl 1 gm/ Dextrose 50 mls @ 100 mls/hr IV DAILY [facility] Last Admin: 04/21/16 09:01 Dose: 100 mls/hr Insulin Glargine (Lantus) 29 unit SQ DAILY [facility] Last Admin: 04/21/16 09:01 Dose: 29 unit Insulin Human Lispro (Humalog) 0 unit SQ ACHS [facility] PRN Reason: Protocol Last Admin: 04/21/16 13:26 Dose: 3 unit Iron Carb/Multivit/Elementary School Band Director/Folic Acid (Multivitamin W/Minerals) 1 tab PO DAILY [facility] Last Admin: 04/21/16 09:03 Dose: 1 tab Ondansetron HCl (Zofran) 4 mg IV Q4-6HP PRN PRN Reason: Nausea And Vomiting Pantoprazole Sodium (Protonix) 40 mg PO QAMAC [facility] Last Admin: 04/21/16 07:32 Dose: 40 mg Combigan 0.2%-0.5% (Eye Drops) 1 dose OU BID [facility] Last Admin: 04/21/16 09:04 Dose: 1 dose Senna/Docusate Sodium (Senna Plus Tablet) 1 tab PO HS [facility] Last Admin: 04/20/16 21:37 Dose: 1 tab Sertraline HCl (Zoloft) 25 mg PO DAILY [facility] Last Admin: 04/21/16 09:03 Dose: 25 mg Sodium Chloride (Saline Flush) 10 ml IV Q8 [facility] Last Admin: 04/21/16 05:20 Dose: 10 ml Tamsulosin HCl (Flomax) 0.4 mg PO [facility] Last Admin: 04/20/16 21:37 Dose: 0.4 mg Travoprost (Travatan Z Ophth Drops) 1 gtt OU [facility] Last Admin: 04/20/16 21:00 Dose: Not Given Medical - PN: A/P - Time Spent With Patient Total time spent is greater than 50% in coordination of care (as documented) at patient's floor/unit and/or counseling patient: (1) Syncope and collapse Status: Acute Current Visit: Yes (2) Anemia Status: Acute Current Visit: Yes (3) Fatigue Status: Acute Current Visit: Yes (4) Cellulitis Status: Acute Current Visit: Yes (5) 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 Status: Acute Current Visit: Yes - Narrative A/P Narrative: Continue with IV antibiotics for wound infection cefepime and daptomycin Labs ok, Await echo Management of infection as per Dr Truong of Wound clinic. CT head showed enlarged ventricles, NPH? can be worked up as outpatient by PCP. Glucose high, fs between 136-256, increase lantus from 29 to 35 units, and use moderate sliding scale insulin. DVT hep sq Diet diabetic. Medical - PN: Qual - VTE Deep Vein Thrombosis/Pulmonary Embolism Present on Admission: No
[2016-04-21] MEDS: ATORVASTATIN 20 MG TABLET PO SCH (21:09)
[2016-04-21] MEDS: TAMSULOSIN 0.4 MG CAPSULE PO SCH (21:09)
[2016-04-21] MEDS: SENNOSIDES/DOCUSATE SODIUM 1 TAB TABLET PO SCH (21:09)
[2016-04-21] MEDS: TRAVOPROST OPHTH DROPS BOTTLE 2.5ML OU SCH (21:09)
[2016-04-22] MEDS: 0.9 % SODIUM CHLORIDE 10 ML SYRINGE IV SCH ×3 (05:37→22:15)
[2016-04-22 05:55] LABS: Mean Cell Volume 87.3 fL (80.0-100.0); Mean Corpuscular HGB Conc 33.8 g/dL (31.0-36.0); Mean Corpuscular Hemoglobin 29.5 pg (26.0-34.0); Platelet Count 248 K/mcL (140-440); RBC 3.68 M/mcL (4.50-5.90); Red Cell Distribution Width 15.5 % (11.5-14.5)
[2016-04-22 06:50] LABS: ALT/SGPT 21 U/l (0-40); Alkaline Phosphatase 78 U/L (39-117); Bilirubin,Direct < 0.2 mg/dL (0.0-0.3); Blood Urea Nitrogen 32 mg/dl (8-23); Gamma Glutamyl Transpeptidase 17 U/L (8-61); Magnesium 2.2 mg/dL (1.6-2.5); Uric Acid 4.6 mg/dL (2.5-8.0)
[2016-04-22] MEDS: INSULIN LISPRO 1 UNIT/0.01 ML UNIT SQ SCH ×4 (07:04→22:08)
[2016-04-22] MEDS: PANTOPRAZOLE 40 MG TABLET PO SCH (07:14)
[2016-04-22] MEDS: SERTRALINE 50 MG TABLET PO SCH (08:37)
[2016-04-22] MEDS: DOCUSATE SODIUM 100 MG CAPSULE PO SCH ×2 (08:37→21:13)
[2016-04-22] MEDS: MULTIVIT,THER IRON,CA,FA & MIN 1 TABLET PO SCH (08:37)
[2016-04-22] MEDS: ASCORBIC ACID 500 MG TABLET PO SCH (08:38)
[2016-04-22] MEDS: CEFEPIME 1 GM in DEXTROSE 5% IN WATER 50 ML IV SCH ×2 (08:38→12:18)
[2016-04-22] MEDS: HEPARIN 5,000 UNIT/ML VIAL SQ SCH ×2 (08:38→21:05)
[2016-04-22] MEDS: FOLIC ACID 1 MG TABLET PO SCH (08:38)
[2016-04-22] MEDS: INSULIN GLARGINE, HUMAN 1 UNIT/0.01 ML SQ SCH (08:38)
--- NOTE | 2016-04-22 09:27 | Echocardiogram Report ---
PATIENT: Roverto Marley. DATE OF EXAM: 04/20/2016. ECHOCARDIOGRAM: 2-D and M-mode echocardiography with cardiac Doppler and color flow imaging were performed with a [email or web address] MX. (See accompanying M-mode and Doppler reports for quantitation.) The indication is syncope and chest tightness. The study was technically suboptimal for anatomic reasons. A diagnostic M-mode tracing of the LV could not be obtained. Overall size of the 4 cardiac chambers and aortic root appeared normal. LV endocardium was very difficult to visualize, though wall thickness appeared normal and systolic performance appeared grossly moderately and globally depressed. A very rough estimate of ejection fraction is 40 percent. There was no evidence for mural thrombi. The aortic valve appeared trileaflet. Light leaflet calcification was present. Valve opening appeared adequate and there was no evidence for aortic stenosis or aortic regurgitation by Doppler interrogation. The mitral and tricuspid valves appeared unremarkable. Doppler interrogation of LV inflow disclosed prolonged early diastolic deceleration time and __ wave dominance indicating delayed LV relaxation. There was no evidence for mitral regurgitation. Mitral E point septal separation was increased corroborating reduced LV ejection fraction. Pulmonary venous interrogation disclosed normal \\"Keppra __ dominance. The pulmonic valve was not well visualized. Pulmonary artery acceleration time was difficult to measure. There was no evidence for pulmonic stenosis. Pulmonic regurgitation and tricuspid regurgitation, both probably mild (1+), were appreciated. No intracardiac shunting was noted. A vague density in the RA cavity of uncertain clinical significance was seen. There was no evidence for pericardial effusion. The IVC was of normal diameter and showed normal respiratory variation. Sinus rhythm, rate 75, was present. CONCLUSION: Technically suboptimal study for anatomic reasons. Light aortic leaflet calcification with adequate valve opening. Grossly moderate global LV systolic dysfunction. ECHOCARDIOGRAPHY M-MODE CALCULATIONS: HT: 74 inches WT: 174 BSA: 2.05 m squared NORMALS AORTA: AORTIC ROOT 3.5 2.0-3.7 cm LEFT ATRIUM 3.5 1.9-4.0 cm MITRAL VALVE: EXCURSION 2.3 1.9-2.7 cm EPSS 1.7 <0.5 cm LT VENTRICLE: LVID (ED) 3.5-5.7 cm LVID (ES) SEPTAL THICKNESS 0.6-1.1 cm SEPTAL EXCURSION 0.3-0.8 cm LVPW THICKNESS 0.6-1.1 cm LVPW EXCURSION 0.9-1.4 cm MINOR AXIS FS 25%-40% RT VENTRICLE: RVID (ED) 0.9-2.6 cm(up to 3cm if LLD) QUALITATIVE DOPPLER FLOW STUDIES MITRAL VALVE AORTIC VALVE TRICUSPID VALVE TR, probably mild (1+) PULMONIC VALVE NH, probably mild (1+) QUANTITATIVE DOPPLER FLOW STUDIES SAMPLE SITES VELOCITIES PEAK PRESSURE VALVE AREA and/or VALVE WINDOW (PEAK,M/SEC) DROP (GRADIENT) PRESSURE HALF-TIME MV (Diastole) 0.7 1.3 MV (Systole) AO (Diastole) AO (Systole) 0.8 TV (Systole) 2.5 PV (Systole) 0.7 PV (Diastole) 1.4 LWG:rodolfo Job ID: [id number] Doc ID: [id number] Sonny Babcock MD
[2016-04-22] MEDS ORDERED: ALTEPLASE 2 MG VIAL IV ONE (09:32)
[2016-04-22 10:34] LABS: Eosinophils % (Manual) 1 % (0-7); Lymphocytes % 42 % (15-49); Monocytes % (Manual) 5 % (1-9); Platelet Estimate NORMAL (NORMAL); RBC Morphology NORMAL (NORMAL); Segmented Neutrophils % 52 % (38-78)
[2016-04-22] MEDS: DAPTOmycin 500 MG VIAL IV SCH (12:17)
--- NOTE | 2016-04-22 17:27 | General Surgery Progress Note ---
Subjective Patient reports: other (Patient seen on rounds and reassesed again this evening. ) Narrative: Note initiated : 04/22/16 at 5:23 pm Service Date, if different from initiated Date: [] Patient: Roverto Marley 81 y/o M admitted on 04/19/16 for Weakness/Lower Extremity Cellulitis. Chief Complaint: [] Objective Temp Pulse Resp BP Pulse Ox 97.6 F 77 16 132/66 97 04/22/16 16:00 04/22/16 16:00 04/22/16 16:00 04/22/16 16:00 04/22/16 16:00 AVSS. No changes in ARTHUR. L/E: DFU is clean and swelling of foot is decreased. / osteomyelitis Right heel and ankle area is stable . ON IV antibiotic treatment. Patient looks brighter and is more interactive today and participated in Physical Therapy. PRBC transfusion has helped him. Hct 32. Other labs reviewed. - Additional Data Intake & Output - Last 24 hours: Intake & Output 04/20/16 04/21/16 04/22/16 04/23/16 05:59 05:59 05:59 05:59 Intake Total 2850 / 2850 2345 / 2345 710 / 710 1330 / 1330 Output Total 901 / 901 376 / 376 303 / 303 300 / 300 Balance 194 / 1948 1968 / 1968 407 / 407 1030 / 1030 Weight 174 lb 173 lb 8 oz 174 lb 8 oz - Labs 04/22/16 04:40 04/22/16 04:40 Diabetes panel 04/22/16 Range/Units 04:40 Sodium 135 (133-145) mmol/L Potassium 4.9 (3.3-5.1) mmol/L Chloride 98 (96-108) mmol/L Carbon Dioxide 27 (22-30) mmol/L BUN 32 H (8-23) mg/dl Creatinine 1.5 H (0.7-1.2) mg/dl Glucose 86 (70-105) mg/dL Calcium 8.8 (8.6-10.4) mg/dl AST 32 (0-37) U/l ALT 21 (0-40) U/l Alkaline Phosphatase 78 (39-117) U/L Total Protein 6.1 (5.9-8.4) gm/dL Albumin 3.0 L (3.2-5.2) gm/dL Triglycerides 51 (<150) mg/dl Calcium panel 04/22/16 Range/Units 04:40 Calcium 8.8 (8.6-10.4) mg/dl Phosphorus 3.0 (2.7-4.5) mg/dL Albumin 3.0 L (3.2-5.2) gm/dL Pituitary panel 04/22/16 Range/Units 04:40 Sodium 135 (133-145) mmol/L Potassium 4.9 (3.3-5.1) mmol/L Chloride 98 (96-108) mmol/L Carbon Dioxide 27 (22-30) mmol/L BUN 32 H (8-23) mg/dl Creatinine 1.5 H (0.7-1.2) mg/dl Glucose 86 (70-105) mg/dL Calcium 8.8 (8.6-10.4) mg/dl Adrenal panel 04/22/16 Range/Units 04:40 Sodium 135 (133-145) mmol/L Potassium 4.9 (3.3-5.1) mmol/L Chloride 98 (96-108) mmol/L Carbon Dioxide 27 (22-30) mmol/L BUN 32 H (8-23) mg/dl Creatinine 1.5 H (0.7-1.2) mg/dl Glucose 86 (70-105) mg/dL Calcium 8.8 (8.6-10.4) mg/dl Total Bilirubin 0.3 (0.0-1.0) mg/dL AST 32 (0-37) U/l ALT 21 (0-40) U/l Alkaline Phosphatase 78 (39-117) U/L Total Protein 6.1 (5.9-8.4) gm/dL Albumin 3.0 L (3.2-5.2) gm/dL Medical - PN: A/P - Time Spent With Patient Total time spent is greater than 50% in coordination of care (as documented) at patient's floor/unit and/or counseling patient: Satisfactory progress. Patient and his family especially his son BLADE have to coordinate further treatment plans with case management. Patient WILL BENEFIT by changing his status to SWING BED status so that he can have Physical Therapy, IV antibiotics and CAN ALSO BENEFIT from HBO therapy for DFU Acosta 4 with osteomyelitis. Following patient. Will initiate HBO orders IF OKAYED by Case Management. 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
[2016-04-22] MEDS: TAMSULOSIN 0.4 MG CAPSULE PO SCH (21:02)
[2016-04-22] MEDS: ATORVASTATIN 20 MG TABLET PO SCH (21:03)
[2016-04-22] MEDS: TRAVOPROST OPHTH DROPS BOTTLE 2.5ML OU SCH (21:06)
[2016-04-22] MEDS: SENNOSIDES/DOCUSATE SODIUM 1 TAB TABLET PO SCH (21:13)
[2016-04-23] MEDS: INSULIN LISPRO 1 UNIT/0.01 ML UNIT SQ SCH ×4 (07:30→21:47)
[2016-04-23 07:34] LABS: Mean Cell Volume 89.8 fL (80.0-100.0); Mean Corpuscular HGB Conc 32.4 g/dL (31.0-36.0); Mean Corpuscular Hemoglobin 29.1 pg (26.0-34.0); Platelet Count 236 K/mcL (140-440); RBC 3.77 M/mcL (4.50-5.90); Red Cell Distribution Width 16.6 % (11.5-14.5)
[2016-04-23 08:23] LABS: ALT/SGPT 20 U/l (0-40); Albumin 2.9 gm/dL (3.2-5.2); Alkaline Phosphatase 75 U/L (39-117); Bilirubin,Direct < 0.2 mg/dL (0.0-0.3); Blood Urea Nitrogen 34 mg/dl (8-23); C-Reactive Protein 1.1 mg/dl (0.0-0.8); Gamma Glutamyl Transpeptidase 15 U/L (8-61); Magnesium 2.3 mg/dL (1.6-2.5); Phosphorous 2.9 mg/dL (2.7-4.5); Uric Acid 4.7 mg/dL (2.5-8.0)
[2016-04-23 08:29] LABS: Anisocytosis 1+ (NONE SEEN); Band Neutrophils % 2 % (0-10); Eosinophils % (Manual) 6 % (0-7); Lymphocytes % 19 % (15-49); Monocytes % (Manual) 4 % (1-9); Platelet Estimate NORMAL (NORMAL); RBC Morphology ABNORMAL (NORMAL); Segmented Neutrophils % 64 % (38-78)
[2016-04-23 08:48] LABS: Erythrocyte Sedimentation Rate 45 mm/hr (0-15)
[2016-04-23] MEDS: 0.9 % SODIUM CHLORIDE 10 ML SYRINGE IV SCH ×3 (09:35→22:52)
[2016-04-23] MEDS: ASCORBIC ACID 500 MG TABLET PO SCH (09:37)
[2016-04-23] MEDS: SERTRALINE 50 MG TABLET PO SCH (09:37)
[2016-04-23] MEDS: FOLIC ACID 1 MG TABLET PO SCH (09:38)
[2016-04-23] MEDS: HEPARIN 5,000 UNIT/ML VIAL SQ SCH ×2 (09:38→21:45)
[2016-04-23] MEDS: MULTIVIT,THER IRON,CA,FA & MIN 1 TABLET PO SCH (09:39)
[2016-04-23] MEDS: DOCUSATE SODIUM 100 MG CAPSULE PO SCH ×2 (09:39→21:43)
[2016-04-23] MEDS: CEFEPIME 1 GM in DEXTROSE 5% IN WATER 50 ML IV SCH (09:40)
[2016-04-23] MEDS: DAPTOmycin 500 MG VIAL IV SCH (09:40)
[2016-04-23] MEDS: PANTOPRAZOLE 40 MG TABLET PO SCH (11:28)
[2016-04-23] MEDS: INSULIN GLARGINE, HUMAN 1 UNIT/0.01 ML SQ SCH ×2 (11:29→11:31)
--- NOTE | 2016-04-23 12:25 | Internal Med Progress Note ---
Medical - PN: Subj Patient information: Note initiated : 04/23/16 at 12:21 pm Service Date, if different from initiated Date: [] Patient: Roverto Marley 81 y/o M admitted on 04/19/16 for Weakness/Lower Extremity Cellulitis. Chief Complaint: [] Interval history: The patient seen examined, this AM in presence of Dr Truong and patient son. Reviewed with him the patients comorbidities, his DM ulcer / Osteomyelitis is still an ongoing issue, ESR is high, the patient is on IV antibiotics cefepime and daptomycin. There was a plan to change the patient to swing status, however given that the patient needs buttermaker antibiotics, I am not convinced that this facility is the right facility for the patient, especially given that the patient wound/ infection has not responded well to these antibiotics. We do not have access to ID. The patient will need a comprehensive and well coordinated care which we are unable to provide at this facility. Discussed with him the possible X po to [facility] or any other facility of patients choice. The patient also needs ongoint PT, was sob with minimal activity today. HE will need to improve his functional status. The patient had low glucose values this AM, but after breakfast improved, dose of insulin changed from 35 to 20 units. Discussed with the patients son, need for cardiology eval as outpatient. Tentatively the patient has been accepted to [facility] facility as per case management. Will likely be d/c there tomorrow. Pertinent ROS: Denies headache, dizziness Denies chest pain, palpitations Denies cough or shortness of breath Denies abdominal pain, nausea or vomiting. - Constitutional Vitals: Vital Signs Temp Pulse Resp BP Pulse Ox 95.1 F L 67 14 118/58 98 04/23/16 11:25 04/23/16 11:25 04/23/16 11:25 04/23/16 11:25 04/23/16 11:25 Period Temp Pulse Resp BP Sys/Saucedo Pulse Ox Last 24 Hr 95.1 F-97.9 F 67-82 14-22 99-154/58-82 95-98 Intake and Output 04/22/16 04/23/16 04/23/16 21:59 05:59 13:59 Intake Total 800 / 800 250 / 250 700 / 700 Output Total 101 / 101 151 / 151 326 / 326 Balance 699 / 699 99 / 99 374 / 374 Weight 177 lb Intake & Output: Intake & Output 04/22/16 04/23/16 04/23/16 21:59 05:59 13:59 Intake Total 800 / 800 250 / 250 700 / 700 Output Total 101 / 101 151 / 151 326 / 326 Balance 699 / 699 99 / 99 374 / 374 Weight 177 lb Intake: Oral 800 / 800 250 / 250 700 / 700 Output: Void Amount 100 / 100 150 / 150 325 / 325 # of times incontinent of urine Other: Meal Lunch Breakfast Percent of Meal Consumed 100% 100% Feeding Ability Independent # Voids 1 Exam: Constitutional; Afebrile, cooperative, alert, not in distress. Eyes- No icterus, , No periorbital swelling Ears- Ext ear normal, hard of hearing. Neck- Midline trachea, supple Respiratory system: Air Entry equal on both sides, No crackles or wheezing, no rhonchi. CVS- Rate rhythm regular, S1,S2 heard, no gallop, no rub. distant heart sounds Abdomen- Soft nontender abdomen, no organomegaly, no tenderness, no guarding or rigidity, HOME CARE SCHEDULER- AOO moving all extremities, no focal deficit noted. Medical - PN: Obj Da - Labs CBC & Chem 7: 04/23/16 04:30 04/23/16 04:30 Labs: Abnormal Lab Results 04/23/16 04/23/16 04/22/16 04:30 04:30 04:40 WBC 11.7 H RBC 3.77 L Hgb 11.0 L Hct 33.8 L RDW 16.6 H MPV 7.2 L Monocytes % (Manual) Reactive Lymphocytes 5 H Anisocytosis 1+ A ESR 45 H BUN 34 H 32 H Creatinine 1.4 H 1.5 H Glucose 33 L* Calcium Phosphorus Lactate Dehydrogenase 280 H C-Reactive Protein 1.1 H Albumin 2.9 L 3.0 L Albumin/Globulin Ratio 04/22/16 04/21/16 04/21/16 04:40 04:50 04:50 WBC RBC 3.68 L 3.49 L Hgb 10.9 L 10.5 L Hct 32.2 L 31.1 L RDW 15.5 H 15.3 H MPV 7.2 L Monocytes % (Manual) 11 H Reactive Lymphocytes Anisocytosis ESR BUN 24 H Creatinine 1.4 H Glucose Calcium 8.2 L Phosphorus 2.6 L Lactate Dehydrogenase C-Reactive Protein Albumin 2.7 L Albumin/Globulin Ratio 0.8 L Meds: Medications Acetaminophen (Tylenol) 650 mg PO Q4-6HP PRN PRN Reason: PAIN/FEVER > 101 Ascorbic Acid (Vitamin C) 1,000 mg PO DAILY [facility] Last Admin: 04/23/16 09:37 Dose: 1,000 mg Atorvastatin Calcium (Lipitor) 10 mg PO HS [facility] Last Admin: 04/22/16 21:03 Dose: 10 mg Bisacodyl (Dulcolax) 10 mg LA Q2-3DAYS PRN PRN Reason: Constipation Daptomycin (Cubicin) 500 mg IV DAILY [facility] Last Admin: 04/23/16 09:40 Dose: 500 mg Dextrose (Dextrose 50%) 0 ml IV UD PRN PRN Reason: Hypoglycemia Diagnostic Test (Pha) (Accu-Chek) 1 each FS ACHS [facility] Last Admin: 04/23/16 11:31 Dose: 1 each Docusate Sodium (Colace) 100 mg PO BID [facility] Last Admin: 04/23/16 09:39 Dose: 100 mg Folic Acid (Folic Acid) 1 mg PO DAILY [facility] Last Admin: 04/23/16 09:38 Dose: 1 mg Heparin Sodium (Porcine) (Heparin) 5,000 unit SQ Q12 [facility] Last Admin: 04/23/16 09:38 Dose: 5,000 unit Acetaminophen (Ofirmev) 1,000 mg in 100 mls @ 200 mls/hr IV Q6HP PRN PRN Reason: PAIN/FEVER > 101 Cefepime HCl 1 gm/ Dextrose 50 mls @ 100 mls/hr IV DAILY [facility] Last Admin: 04/23/16 09:40 Dose: 100 mls/hr Insulin Glargine (Lantus) 20 unit SQ DAILY [facility] Last Admin: 04/23/16 11:29 Dose: 20 unit Insulin Human Lispro (Humalog) 0 unit SQ ACHS [facility] PRN Reason: Protocol Last Admin: 04/23/16 11:30 Dose: 8 unit Iron Carb/Multivit/Promotional Marketing Agent/Folic Acid (Multivitamin W/Minerals) 1 tab PO DAILY [facility] Last Admin: 04/23/16 09:39 Dose: 1 tab Ondansetron HCl (Zofran) 4 mg IV Q4-6HP PRN PRN Reason: Nausea And Vomiting Pantoprazole Sodium (Protonix) 40 mg PO QAMAC [facility] Last Admin: 04/23/16 11:28 Dose: 40 mg Combigan 0.2%-0.5% (Eye Drops) 1 dose OU BID [facility] Last Admin: 04/23/16 09:39 Dose: 1 dose Senna/Docusate Sodium (Senna Plus Tablet) 1 tab PO [facility] Last Admin: 04/22/16 21:13 Dose: Not Given Sertraline HCl (Zoloft) 25 mg PO DAILY [facility] Last Admin: 04/23/16 09:37 Dose: 25 mg Sodium Chloride (Saline Flush) 10 ml IV Q8 [facility] Last Admin: 04/23/16 09:35 Dose: 10 ml Tamsulosin HCl (Flomax) 0.4 mg PO [facility] Last Admin: 04/22/16 21:02 Dose: 0.4 mg Travoprost (Travatan Z Ophth Drops) 1 gtt OU [facility] Last Admin: 04/22/16 21:06 Dose: 1 gtt Medical - PN: A/P - Time Spent With Patient Total time spent is greater than 50% in coordination of care (as documented) at patient's floor/unit and/or counseling patient: (1) Syncope and collapse Status: Acute Current Visit: Yes (2) Anemia Status: Acute Current Visit: Yes (3) Fatigue Status: Acute Current Visit: Yes (4) Cellulitis Status: Acute Current Visit: Yes (5) 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 Status: Acute Current Visit: Yes (6) Hypoglycemia associated with type 2 diabetes mellitus Status: Acute Current Visit: Yes - Narrative A/P Narrative: The patient is stable, but still very weak no obvious source of syncope noted, needs outpatient cardiology eval. Also possible eval for NPH Continue IV antibiotics for now, needs to go to another center like [facility] for wound care management vs a facility with ID Anemia- Hb stable Patients son noted some orthostatic symptomatic changes, will give some fluids, today. patient low glucose reviewed, cut dose of lantus from 35 to 20. Monitor Medical - PN: Qual - VTE Deep Vein Thrombosis/Pulmonary Embolism Present on Admission: No
[2016-04-23] MEDS: 0.9 % SODIUM CHLORIDE 1,000 ML IV SCH (12:58)
--- NOTE | 2016-04-23 19:13 | General Surgery Progress Note ---
Subjective Patient reports: other (I saw patient earlier today along with Dr. Godoy and nursing staff and patient's son Charly.) Narrative: Note initiated : 04/23/16 at 7:10 pm Service Date, if different from initiated Date: [] Patient: Roverto Marley 81 y/o M admitted on 04/19/16 for Weakness/Lower Extremity Cellulitis. Chief Complaint: [] Objective Temp Pulse Resp BP Pulse Ox 97.1 F L 74 14 128/76 95 04/23/16 16:00 04/23/16 16:00 04/23/16 16:00 04/23/16 16:00 04/23/16 16:00 AVSS. Right heel wound care is ongoing along with IV antibiotics and Physical therapy. Currently his HBOT will have to wait, until his functional status improves and his other medical problems are managed optimally. I therefore, concur with Dr. Godoy about his coordinated care at [facility]. - Additional Data Intake & Output - Last 24 hours: Intake & Output 04/21/16 04/22/16 04/23/16 04/24/16 05:59 05:59 05:59 05:59 Intake Total 2345 / 2345 710 / 710 1630 / 1630 716 / 716 Output Total 376 / 376 303 / 303 552 / 552 501 / 501 Balance 1968 / 1968 407 / 407 1078 / 1078 215 / 215 Weight 173 lb 8 oz 174 lb 8 oz 177 lb - Labs 04/23/16 04:30 04/23/16 04:30 Diabetes panel 04/23/16 Range/Units 04:30 Sodium 137 (133-145) mmol/L Potassium 4.5 (3.3-5.1) mmol/L Chloride 99 (96-108) mmol/L Carbon Dioxide 25 (22-30) mmol/L BUN 34 H (8-23) mg/dl Creatinine 1.4 H (0.7-1.2) mg/dl Glucose 33 L* (70-105) mg/dL Calcium 8.7 (8.6-10.4) mg/dl AST 31 (0-37) U/l ALT 20 (0-40) U/l Alkaline Phosphatase 75 (39-117) U/L Total Protein 5.9 (5.9-8.4) gm/dL Albumin 2.9 L (3.2-5.2) gm/dL Triglycerides 56 (<150) mg/dl Calcium panel 04/23/16 Range/Units 04:30 Calcium 8.7 (8.6-10.4) mg/dl Phosphorus 2.9 (2.7-4.5) mg/dL Albumin 2.9 L (3.2-5.2) gm/dL Pituitary panel 04/23/16 Range/Units 04:30 Sodium 137 (133-145) mmol/L Potassium 4.5 (3.3-5.1) mmol/L Chloride 99 (96-108) mmol/L Carbon Dioxide 25 (22-30) mmol/L BUN 34 H (8-23) mg/dl Creatinine 1.4 H (0.7-1.2) mg/dl Glucose 33 L* (70-105) mg/dL Calcium 8.7 (8.6-10.4) mg/dl Adrenal panel 04/23/16 Range/Units 04:30 Sodium 137 (133-145) mmol/L Potassium 4.5 (3.3-5.1) mmol/L Chloride 99 (96-108) mmol/L Carbon Dioxide 25 (22-30) mmol/L BUN 34 H (8-23) mg/dl Creatinine 1.4 H (0.7-1.2) mg/dl Glucose 33 L* (70-105) mg/dL Calcium 8.7 (8.6-10.4) mg/dl Total Bilirubin 0.2 (0.0-1.0) mg/dL AST 31 (0-37) U/l ALT 20 (0-40) U/l Alkaline Phosphatase 75 (39-117) U/L Total Protein 5.9 (5.9-8.4) gm/dL Albumin 2.9 L (3.2-5.2) gm/dL Medical - PN: A/P - Time Spent With Patient Total time spent is greater than 50% in coordination of care (as documented) at patient's floor/unit and/or counseling patient: DFU and OM right heel. Anemia s/p PRBC transfusion. Plan : Continue current medical management. Agree with transfer to [facility]. Will see patient again and consider HBOT at a later date as needed and when patient returns to [facility]. 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
[2016-04-23] MEDS: TAMSULOSIN 0.4 MG CAPSULE PO SCH (21:43)
[2016-04-23] MEDS: ATORVASTATIN 20 MG TABLET PO SCH (21:44)
[2016-04-23] MEDS: SENNOSIDES/DOCUSATE SODIUM 1 TAB TABLET PO SCH (21:44)
[2016-04-23] MEDS: TRAVOPROST OPHTH DROPS BOTTLE 2.5ML OU SCH (21:45)
[2016-04-24] MEDS: 0.9 % SODIUM CHLORIDE 1,000 ML IV SCH (02:14)
[2016-04-24] MEDS: PANTOPRAZOLE 40 MG TABLET PO SCH (07:08)
[2016-04-24] MEDS: 0.9 % SODIUM CHLORIDE 10 ML SYRINGE IV SCH (07:09)
[2016-04-24] MEDS: INSULIN LISPRO 1 UNIT/0.01 ML UNIT SQ SCH (07:31)
[2016-04-24 08:07] LABS: Mean Cell Volume 90.8 fL (80.0-100.0); Mean Corpuscular HGB Conc 32.5 g/dL (31.0-36.0); Mean Corpuscular Hemoglobin 29.5 pg (26.0-34.0); Platelet Count 233 K/mcL (140-440); RBC 3.64 M/mcL (4.50-5.90); Red Cell Distribution Width 16.4 % (11.5-14.5)
[2016-04-24] MEDS: ASCORBIC ACID 500 MG TABLET PO SCH (08:55)
[2016-04-24] MEDS: SERTRALINE 50 MG TABLET PO SCH (08:55)
[2016-04-24] MEDS: MULTIVIT,THER IRON,CA,FA & MIN 1 TABLET PO SCH (08:55)
[2016-04-24] MEDS: FOLIC ACID 1 MG TABLET PO SCH (08:56)
[2016-04-24] MEDS: HEPARIN 5,000 UNIT/ML VIAL SQ SCH (08:56)
[2016-04-24] MEDS: DOCUSATE SODIUM 100 MG CAPSULE PO SCH (08:56)
[2016-04-24 08:57] LABS: Anisocytosis 1+ (NONE SEEN); Band Neutrophils % 2 % (0-10); Eosinophils % (Manual) 7 % (0-7); Lymphocytes % 20 % (15-49); Monocytes % (Manual) 2 % (1-9); Platelet Estimate NORMAL (NORMAL); RBC Morphology ABNORMAL (NORMAL); Segmented Neutrophils % 69 % (38-78)
[2016-04-24] MEDS: CEFEPIME 1 GM in DEXTROSE 5% IN WATER 50 ML IV SCH (09:03)
[2016-04-24] MEDS: DAPTOmycin 500 MG VIAL IV SCH (09:03)
[2016-04-24 09:04] LABS: ALT/SGPT 19 U/l (0-40); Albumin 2.8 gm/dL (3.2-5.2); Alkaline Phosphatase 72 U/L (39-117); Bilirubin,Direct < 0.2 mg/dL (0.0-0.3); Blood Urea Nitrogen 29 mg/dl (8-23); Gamma Glutamyl Transpeptidase 15 U/L (8-61); Magnesium 2.3 mg/dL (1.6-2.5); Uric Acid 4.4 mg/dL (2.5-8.0)
[2016-04-24] MEDS: INSULIN GLARGINE, HUMAN 1 UNIT/0.01 ML SQ SCH (09:04)
--- NOTE | 2016-04-24 09:51 | Discharge Summary ---
Medical - DS: Prov Patient information: Note initiated : 04/24/16 at 9:44 am Service Date, if different from initiated Date: [] Patient: Roverto Marley 81 y/o M admitted on 04/19/16 for Weakness/Lower Extremity Cellulitis. Chief Complaint: [] Date of admission: 04/19/16 09:05 Discharge date: 04/24/16 Primary care physician: [f_Reg Prim Care Provider] Medical - DS: Meds - Discharge Medications Active and Home Medications: Home Medications Combigan 0.2%-0.5% Eye Drops 1 drop BOTH EYES BID 04/19/16 [History Confirmed Last Taken 04/18/16 20:00] Travatan Z Ophth Drops 1 drop BOTH EYES HS 04/19/16 [History Confirmed 04/19/16 Last Taken 04/18/16 20:00] metroNIDAZOLE 500 mg PO BID 04/19/16 [History Confirmed 04/19/16 Last Taken 05/03 20:00] Medical - DS: Hosp Hospital course: DISCHARGE DIAGNOSIS * diabetic osteomyelitis right foot * Severe sepsis * Diabetic nonhealing ulcer Cellulitis right foot * syncope-no telemetry events. EF 40%. * dM type II * diabetic neuropathy BRIEF HOSPITAL COURSE 04/19-Mr. Marley is a 81 year old male diabetic/peripheral neuropathy admitted with right foot diabetic ulcer/nonhealing osteomyelitis despite 4 weeks of IV antibiotics by infectious disease specialist Dr HEWITT and ongoing wound care by Dr. Morris wound care physician and podiatry Dung Pretty. he was admitted for hyperbaric oxygen treatment along with continued antibiotic coverage /wound care. 04/24- despite 5 days of additional antibiotics on daptomycin/cefepime and aggressive wound care along with hyperbaric oxygen treatment no significant improvement was noted. Concern was raised by my colleague about the complexity of wound and inadequate response to antibiotics/aggressive treatment mandating transfer to [facility]. Subsequent transfer coordination at [facility] was initiated. Patient was accepted and is being transferred to [facility] for further wound management along with antibiotics. case discussed with accepting physician at transfer Center. Highly appreciate in coordinating transfer and help in further management Discharge diagnosis: right foot osteomyelitis/diabetic ulcer - Time Spent with Patient Total time spent providing and/or coordinating discharge services: Greater than 30 minutes Medical - DS: Exam - Constitutional Vitals: Vital Signs Temp Pulse Resp BP Pulse Ox 04/24/16 04:00 97.2 F L 73 24 133/69 99 04/23/16 23:06 97.6 F 71 24 106/46 97 04/23/16 20:00 97.9 F 79 24 139/70 97 04/23/16 16:00 97.1 F L 74 14 128/76 95 04/23/16 11:25 95.1 F L 67 14 118/58 98 Intake and Output 04/23/16 04/24/16 04/24/16 21:59 05:59 13:59 Intake Total 1095 / 1095 Output Total 302 / 302 153 / 153 Balance -286 / -286 942 / 942 - Intake: IV 995 / 995 Sodium Chloride 0.9% 1, 995 / 995 000 ml @ 75 mls/hr IV . [id number] [facility] Rx#:[id number] Oral 100 / 100 Output: Void Amount 300 / 300 150 / 150 # of times incontinent of 2 / 2 3 / 3 urine Other: Meal Lunch Percent of Meal Consumed 100% # Voids 1 Weight 175 lb 8 oz Medical - DS: Data Labs on day of discharge: Labs from last 24 hours 04/24/16 04/24/16 05:02 05:02 WBC 10.1 RBC 3.64 L Hgb 10.7 L Hct 33.1 L MCV 90.8 MCH 29.5 MCHC 32.5 RDW 16.4 H Plt Count 233 MPV 7.0 L Total Counted 100 Seg Neutrophils % 69 Band Neutrophils % 2 Lymphocytes % 20 Monocytes % (Manual) 2 Eosinophils % (Manual) 7 Platelet Estimate Normal RBC Morphology Abnormal Anisocytosis 1+ A Sodium 138 Potassium 4.5 Chloride 100 Carbon Dioxide 25 Anion Gap 13.0 BUN 29 H Creatinine 1.3 H GFR Calculation 50 Glucose 34 L* Uric Acid 4.4 Calcium 8.4 L Phosphorus 3.0 Magnesium 2.3 Total Bilirubin 0.2 Direct Bilirubin < 0.2 GGT 15 AST 29 ALT 19 Alkaline Phosphatase 72 Lactate Dehydrogenase 251 H Total Protein 5.5 L Albumin 2.8 L Globulin 2.7 Albumin/Globulin Ratio 1.0 Triglycerides 70 Medical - DS: A/P - Patient/Caregiver Discharge Instructions Activity: as per physical therapy, other (wound care) Diet: Consistent Carbohydrate Additional Instructions: transferred to [facility] acute care unit - Follow up Plan Follow up with: Ashely Dunham ARNP [Primary Care Provider] - Disposition: er LTC Prognosis: Fair Rehab Potential: Fair I certify that the patient requires SNF services: Yes Overall status at discharge: patient is progressing back to baseline Medical - DS: Qual - VTE Deep Vein Thrombosis/Pulmonary Embolism Present on Admission: No
== END 2016-04-24 10:10 | DRG 637 ==
LOC: ED 01:32 → MEDSUR 09:05
PROVIDERS: ADMIT Internal Medicine; ATTEND Internal Medicine

== ENCOUNTER 2016-09-10 08:59 | Inpatient (IN) ==
[2016-09-10] MEDS ORDERED: 0.9 % SODIUM CHLORIDE 1,000 ML IV ONE (09:25)
--- NOTE | 2016-09-10 09:39 | Emergency Department Note ---
Weakness HPI - General Chief complaint: Weakness Stated complaint: Weakness Time Seen by Provider: 09/10/16 09:25 Source: patient, other Mode of arrival: ambulatory - History of Present Illness HPI Narrative: Patient reports that he felt very weak this morning, he states his knees gave out and he fell forward. Denies any injury, no history of any fever no chills he did have some black stools just in the last couple of days of. Does however take iron. No chest pain no shortness of breath, he denies any nausea or vomiting he's had no ankle edema no history of any heart problems when he arrived here his blood pressure was 60/40, coming up with IV fluids of. He did walk down and have breakfast, states he was very weak and thus he was wheeled over from [place]. - Related Data Home Medications Medication Instructions Recorded Confirmed Ascorbic Acid [Vitamin C] 500 mg PO BID 03/21/16 09/10/16 Atorvastatin [Lipitor] 10 mg PO DAILY 03/21/16 09/10/16 Insulin Glargine, Human [Lantus] 22 unit SQ HS 03/21/16 09/10/16 Sertraline [Zoloft] 50 mg PO DAILY 03/21/16 09/10/16 Tamsulosin [Flomax] 0.4 mg PO DAILY 03/21/16 09/10/16 Combigan 0.2%-0.5% Eye Drops 1 drop BOTH EYES BID 04/19/16 09/10/16 Travatan Z Ophth Drops 1 drop BOTH EYES HS 04/19/16 09/10/16 Acetaminophen [Tylenol] 650 mg PO Q4HP PRN 07/23/16 09/10/16 Calcium Carbonate [Calcium] 500 mg PO CCHS 07/23/16 09/10/16 Cod Liver Oil/Zinc Oxide [Desitin 1 gm TP DAILY PRN 07/23/16 09/10/16 Diaper Rash 40% Paste] Docusate Sodium [Colace] 100 mg PO BID 07/23/16 09/10/16 Ferrous Sulfate [Iron] 325 mg PO BIDCC 07/23/16 09/10/16 Folic Acid 1 mg PO DAILY 07/23/16 09/10/16 Insulin Lispro [Humalog] 0 unit SQ ACB 07/23/16 09/10/16 Insulin Lispro [Humalog] 0 unit SQ ACL 07/23/16 09/10/16 Insulin Lispro [Humalog] 0 unit SQ PC 07/23/16 09/10/16 Insulin Lispro [Humalog] 0 units SQ ACS 07/23/16 09/10/16 Methyl Salicylate/Menth/Camph 1 each TP DAILYP PRN 07/23/16 09/10/16 [Salonpas Patch] Multivitamin [Multi-Day Vitamins] 1 each PO DAILY 07/23/16 09/10/16 Omeprazole 20 mg PO BIDAC 07/23/16 09/10/16 Sennosides/Docusate Sodium 1 - 2 each PO DAILY 07/23/16 09/10/16 [Senokot-S Tablet] Vitamin D3 5,000 unit PO DAILY 07/23/16 09/10/16 diphenhydrAMINE [Benadryl] 25 mg PO HSP PRN 07/23/16 09/10/16 Allergies Allergy/AdvReac Type Severity Reaction Status Date / Time Penicillins Allergy Unknown Verified 07/27/16 13:05 Ertapenem [From Invanz] AdvReac Mild Weakness Verified 07/23/16 06:25 Review of Systems Constitutional: Denies: fever, chills Eyes: Denies: eye pain ENT ED: Denies: ear pain, throat pain Cardiovascular: Reports: dyspnea on exertion. Denies: chest pain, palpitations Respiratory: Denies: cough Gastrointestinal: Reports: hematochezia. Denies: abdominal pain, nausea, vomiting Genitourinary: Denies: urgency, dysuria Musculoskeletal: Denies: back pain Integumentary: Denies: rash Neurological: Reports: headache, weakness. Denies: confusion Endocrine: Reports: fatigue Hematological/Lymphatic: Denies: easy bleeding Past Medical History - Past Medical History Source: old records reviewed, nursing notes reviewed Medical history: Reports: diabetes (insulin-dependent), hyperlipidemia, hypertension, TIA, other (large prostate) Surgical history ED: Reports: other (stent in right neck. Removal of a bone in his foot. knee surgery as a teenager) - Social History smoking status: Never smoker Alcohol use: Reports: None Drug use: Reports: none Physical Exam - General Limitations: no limitations General appearance: alert, in no apparent distress - Head Head exam: atraumatic, normocephalic, normal inspection - Eye Eye exam: Present: normal appearance, PERRL, EOMI, other ( conjunctival pallor) . Absent: conjunctival injection - ENT ENT exam: normal exam, normal oropharynx, mucous membranes moist, TM's normal bilaterally, normal external ear exam - Neck Neck exam: Present: normal inspection, full ROM, trachea midline. Absent: tenderness - Chest Chest inspection: Present: normal inspection, symmetric chest wall rise. Absent : tenderness, rash - Respiratory Respiratory exam: Present: normal lung sounds bilaterally. Absent: respiratory distress, wheezes - Cardiovascular Cardiovascular exam: Present: regular rate, normal rhythm, tachycardia, normal heart sounds - Abdominal Exam Abdominal exam: Present: soft. Absent: distention, tenderness, guarding, rigidity - Rectal Exam Rectal exam: Present: decreased rectal tone, heme (+) stool, black stool, prostate enlargement - exam: Present: normal inspection, normal testicular lie. Absent: testicular tenderness, scrotal swelling - Extremities Exam Extremities exam: Present: normal inspection, full ROM, pedal edema - Back Exam Back exam: Present: normal inspection, full ROM. Absent: CVA tenderness (R), CVA tenderness (L) - Neurological Exam Neurological exam: Present: alert, oriented X3, CN II-XII intact. Absent: motor sensory deficit - Psychiatric Psychiatric exam: Present: normal affect, normal mood - Skin Skin exam: Present: warm, dry, intact, pallor. Absent: rash Course - Reevaluation(s) Reevaluation #1: Patient was started on IV fluids, his blood pressure came up to normal range after about 750 mL of lactated Ringer's. We did not check orthostatic blood pressures as he was too weak to stand, his white blood cell count is normal, labs to indicate anemia with hematocrit of 25, hemoglobin of 8 and he was typed and crossmatched for 2 units packed red blood cells. He will be transfused, admitted to the hospital, discussed with Dr. Weeks as well as Dr. Nguyen. He does have a DNR status with limited interventions and I did have a discussion with him regarding transfusion and workup of the GI bleed and he would like to have that done. Vital Signs Temperature 97.8 F 09/10/16 08:59 Pulse Rate 87 09/10/16 08:59 Respiratory Rate 16 09/10/16 08:59 Blood Pressure 60/30 09/10/16 08:59 Pulse Oximetry (%) 96 09/10/16 08:59 Temperature 97.8 F 09/10/16 08:59 Pulse Rate 87 09/10/16 08:59 Respiratory Rate 16 09/10/16 08:59 Blood Pressure 60/30 09/10/16 08:59 Pulse Oximetry (%) 96 09/10/16 08:59 Weakness - MDM Narrative Medical decision making narrative: Impression is GI bleed - Lab Data Result diagrams: 09/10/16 09:20 09/10/16 09:20 Lab Results 09/10/16 09/10/16 09/10/16 Range/Units 09:20 09:20 09:20 WBC 7.8 (4.5-11.0) K/mcL RBC 2.76 L (4.50-5.90) M/mcL Hgb 8.1 L (13.5-16.5) g/dL Hct 24.5 L (41.0-55.0) % POC Hct 25.0 L (41.0-55.0) % MCV 88.8 (80.0-100.0) fL MCH 29.4 (26.0-34.0) pg MCHC 33.1 (31.0-36.0) g/dL RDW 18.4 H (11.5-14.5) % Plt Count 314 (140-440) K/mcL MPV 6.3 L (7.4-10.4) fL Band Neutrophils % Not Reportable VBG Lactic Acid 2.4 H (0.5-2.2) mmol/L POC Sodium 137 (133-145) mmol/L POC Potassium 4.2 (3.3-5.1) mmol/L POC Chloride 99 (96-108) mmol/L POC Total CO2 26 (22-30) mmol/L POC BUN 30 H (8-23) mg/dl POC Creatinine 1.4 H (0.7-1.2) mg/dl POC Glucose 192 H (70-105) mg/dL POC WB Ioniz Calcium 1.16 (1.16-1.32) mmol/L Disposition Clinical Impression: Anemia, Gastrointestinal bleeding Disposition: Xfer As Inpt ([facility]) Condition: Fair Referrals: Ashely Dunham ARNP [Primary Care Provider] -
[2016-09-10] MEDS ORDERED: PANTOPRAZOLE 40 MG VIAL IV ONE (09:43)
[2016-09-10] MEDS ORDERED: LACTATED RINGERS 1,000 ML IV ONE (09:44)
[2016-09-10] MEDS ORDERED: 0.9 % SODIUM CHLORIDE 250 ML IV SCH ×3 (09:45→14:06)
[2016-09-10] MEDS ORDERED: PANTOPRAZOLE 80 MG in 0.9 % SODIUM CHLORIDE 100 ML IV SCH (09:45)
[2016-09-10 10:16] LABS: Mean Cell Volume 88.8 fL (80.0-100.0); Mean Corpuscular HGB Conc 33.1 g/dL (31.0-36.0); Mean Corpuscular Hemoglobin 29.4 pg (26.0-34.0); Platelet Count 314 K/mcL (140-440); RBC 2.76 M/mcL (4.50-5.90); Red Cell Distribution Width 18.4 % (11.5-14.5)
[2016-09-10 10:41] LABS: Anisocytosis 1+ (NONE SEEN); Band Neutrophils % 1 % (0-10); Basophils % (Manual) 1 % (0-2); Lymphocytes % 18 % (15-49); Monocytes % (Manual) 9 % (1-12); Platelet Estimate NORMAL (NORMAL); RBC Morphology ABNORM (NORMAL); Segmented Neutrophils % 71 % (38-78)
[2016-09-10 10:43] LABS: ALT/SGPT 12 U/l (0-40); Albumin 3.1 gm/dL (3.2-5.2); Alkaline Phosphatase 90 U/L (39-117); Blood Urea Nitrogen 34 mg/dl (8-23)
--- NOTE | 2016-09-10 11:05 | Internal Med History&Physical ---
Medical - H&P: HPI Patient information: Note initiated : 09/10/16 at 11:05 am Patient: Roverto Marley 81 y/o M admitted on for Weakness. History of present illness: Mr. Marley is a 81 year old M This patient presents to the emergency room today complaining of weakness and collapse. ER evaluation was suggestive of GI bleed, with melena for at least one day, and anemia. He also presented with hypotension, with systolic blood pressure in the 60s. This responded to IV fluids. This patient was just admitted on July 22, 2016 from [facility] living, with worsening shortness of breath, and was diagnosed with community-acquired pneumonia.. Prior to that he was admitted in April for a diabetic foot ulcer , and then transferred up to [facility] for wound care. His son tells me that he has been transfused for anemia at least a couple of times this year, but neither the patient nor his son can recall any specific workup for the anemia. They cannot recall him ever having either upper endoscopy or colonoscopy. The patient says he was feeling well this morning when he first woke up around 3 AM. He got up to use the bathroom, and notes he was wearing socks instead of shoes. He reports that he slipped on the floor, and fell and banged his head and shoulder. His knees felt too weak to get up, so he laid on the floor for at least a half an hour, before he was able to locate staff to help him. They got him up into a wheelchair and then back to bed. This morning he reportedly walks to and from breakfast at the facility, but was just feeling rather tired and feeling like his knees were going to give out on him. He was subsequently sent to the emergency room for further evaluation. His systolic blood pressure on arrival to the ER was reported as in the 60s. He subsequently had a very dark looking stool. The patient says he has had black stools for at least several months, but has also been taking iron, and is not sure when either of those started. He denies any NSAID use. He has not had abdominal pain, nausea or vomiting. His son says his blood pressure tends to run very low, so his son is not convinced that his low blood pressure today was something new. Looking over his chart, he has had significant anemia, at least since March. I called his primary care office, Dr. Dunham, and she is out of town, but they looked at his chart for me, and they do not see any evidence that anemia was never addressed. They do note that he did not follow-up with their office for a 2 or 3 year. Otherwise, the patient has no particular complaints, although his head and face are sore from his fall this morning. He did bang his head and has a small abrasion across the bridge of his nose. He otherwise denies recent fever or chills, dizziness, blurry vision, new ear symptoms, sore throat or cough, chest pain or palpitations, shortness of breath, abdominal pain, nausea or vomiting, diarrhea or constipation, bright red blood per rectum. He does have fairly severe urinary urgency, which sounds fairly chronic. Past medical history: Hypertension BPH Hyperlipidemia Anxiety Glaucoma Diabetes type 2 GERD History of chronic kidney disease stage III Lower extremity venous ulcers. Anemia, at least since March. Hydrocephalus, noted on head CT. Medications: Lantus 22 units nightly Flomax 0.4 mg p.o. nightly Atorvastatin 10 mg Sertraline 50 mg p.o. daily Senna 1-2 tabs daily Humalog sliding scale Omeprazole 20 mg p.o. twice daily Benadryl 25 mg nightly as needed Vitamin D 5000 units daily Travatan eyedrops 1 drop both eyes at bedtime Multivitamin 1 daily Methyl salicylate patch topical, daily, as needed Folate 1 mg daily Iron 325 mg twice daily Colace 100 mg p.o. twice daily Combigan eyedrops 0.2%0.5% 1 drop OU twice daily Cod liver oil ointment to skin daily as needed Calcium carbonate 500 mg nightly Vitamin C 500 mg twice daily Tylenol 650 mg p.o. every 4 hours as needed Allergies: Ertapenem, penicillin Social history: The patient lives at [facility]. He has denied tobacco, drug and alcohol use. He has a son and daughter nearby who are involved in his care. CODE STATUS was DNR during his last admission, and he thinks he will stay with this.. Family history: Sister had multiple sclerosis. He says his mother had cancer earlier in her life, but lived to age 93. His father around age 80 from a heart attack. All of his siblings are , and he cannot really recall their health history. Medical - H&P: Meds Home Medications Medication Instructions Recorded Confirmed Type Ascorbic Acid [Vitamin C] 500 mg PO BID 03/21/16 09/10/16 History Atorvastatin [Lipitor] 10 mg PO DAILY 03/21/16 09/10/16 History Insulin Glargine, Human [Lantus] 22 unit SQ HS 03/21/16 09/10/16 History Sertraline [Zoloft] 50 mg PO DAILY 03/21/16 09/10/16 History Tamsulosin [Flomax] 0.4 mg PO DAILY 03/21/16 09/10/16 History Combigan 0.2%-0.5% Eye Drops 1 drop BOTH EYES BID 04/19/16 09/10/16 History Travatan Z Ophth Drops 1 drop BOTH EYES HS 04/19/16 09/10/16 History Acetaminophen [Tylenol] 650 mg PO Q4HP PRN 07/23/16 09/10/16 History Calcium Carbonate [Calcium] 500 mg PO CCHS 07/23/16 09/10/16 History Cod Liver Oil/Zinc Oxide [Desitin 1 gm TP DAILY PRN 07/23/16 09/10/16 History Diaper Rash 40% Paste] Docusate Sodium [Colace] 100 mg PO BID 07/23/16 09/10/16 History Ferrous Sulfate [Iron] 325 mg PO BIDCC 07/23/16 09/10/16 History Folic Acid 1 mg PO DAILY 07/23/16 09/10/16 History Insulin Lispro [Humalog] 0 unit SQ ACB 07/23/16 09/10/16 History Insulin Lispro [Humalog] 0 unit SQ ACL 07/23/16 09/10/16 History Insulin Lispro [Humalog] 0 unit SQ PC 07/23/16 09/10/16 History Insulin Lispro [Humalog] 0 units SQ ACS 07/23/16 09/10/16 History Methyl Salicylate/Menth/Camph 1 each TP DAILYP PRN 07/23/16 09/10/16 History [Salonpas Patch] Multivitamin [Multi-Day Vitamins] 1 each PO DAILY 07/23/16 09/10/16 History Omeprazole 20 mg PO BIDAC 07/23/16 09/10/16 History Sennosides/Docusate Sodium 1 - 2 each PO DAILY 07/23/16 09/10/16 History [Senokot-S Tablet] Vitamin D3 5,000 unit PO DAILY 07/23/16 09/10/16 History diphenhydrAMINE [Benadryl] 25 mg PO HSP PRN 07/23/16 09/10/16 History Allergies Allergy/AdvReac Type Severity Reaction Status Date / Time Penicillins Allergy Unknown Verified 07/27/16 13:05 Ertapenem [From Invanz] AdvReac Mild Weakness Verified 07/23/16 06:25 Medical - H&P: Exam - Constitutional Vitals: Temp Pulse Resp BP Pulse Ox 97.8 F 87 16 60/30 96 09/10/16 08:59 09/10/16 08:59 09/10/16 08:59 09/10/16 08:59 09/10/16 08:59 On exam, he is in no acute distress. He is somewhat hard of hearing. Head: Is normocephalic. He does have a laceration across the bridge of his nose and a small one on his face. Ears: Left ear canal is occluded by cerumen, right TM and canal are clear. Eyes: Pupils are equal, but not especially reactive. There appear to be IOLs in place., EOMI, anicteric. Pharynx: Is clear. Teeth are in good condition. Mucosa is somewhat dry. Neck: Appears supple, without obvious lymphadenopathy, JVD, thyromegaly, bruits. Cardiac exam: Shows regular rate and rhythm, with normal S1 and S2. No murmurs , rubs, gallops are noted. Lungs: Show a few crackles at the bases, but are otherwise clear, without rales , rhonchi, wheezes. Abdomen: Is soft and nontender, with normoactive bowel sounds. No masses are apparent. Rectal exam was done in the emergency room. Decreased rectal tone is reported, as well as heme positive black stool. Prostate mildly enlarged. Extremities: Show minimal edema, without cyanosis or clubbing. Neurologic exam: Is grossly nonfocal. Patient is alert and oriented, although a bit hard of hearing. Mood and affect appear normal. Motor exam is grossly nonfocal. Skin exam: There is a small covered abrasion on the right buttock area. He has face abrasions as noted above. I do not note any other rashes or other worrisome lesions. Medical - H&P: Reslt - Labs CBC & Chem 7: 09/10/16 09:20 09/10/16 09:20 Labs: Short CBC 09/10/16 Range/Units 09:20 WBC 7.8 (4.5-11.0) K/mcL Hgb 8.1 L (13.5-16.5) g/dL Hct 24.5 L (41.0-55.0) % Plt Count 314 (140-440) K/mcL BMP 09/10/16 09:20 Sodium 137 Potassium 4.4 Chloride 98 Carbon Dioxide 25 BUN 34 H Creatinine 1.5 H Glucose 194 H Calcium 8.6 Liver Function 09/10/16 Range/Units 09:20 Total Bilirubin 0.2 (0.0-1.0) mg/dL AST 16 (0-37) U/l ALT 12 (0-40) U/l Alkaline Phosphatase 90 (39-117) U/L Albumin 3.1 L (3.2-5.2) gm/dL September 10: Differential on the CBC shows normal indices, except for RDW of 18. 1+ anisocytosis Lactic acid is elevated at 2.4 EKG shows normal sinus rhythm with a rate of about 90. Left axis deviation. No acute ST-T changes. August 26, 2016 labs: Troponin T: Elevated at 0.04 BNP elevated at 1328 Urine culture: 10-20,000 enterococcus, sensitive to ampicillin, nitrofurantoin, penicillin, vancomycin. Resistant to ciprofloxacin and gentamicin Head CT: Showed mild hydrocephalus, which was worse when compared with April 2016. 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 White matter ischemia in the frontal and parietal lobes. Left-sided mastoiditis and otitis. July 25, 2016: CBC showed hemoglobin of 8.7 with hematocrit of 26 and RDW of 17 April 23, 2016: CBC showed hemoglobin of 11 with hematocrit of 33.24 March 2016: Hemoglobin 9.3, hematocrit 28. 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 Current visit: No Status: Chronic (4) Anemia Current visit: Yes Status: Chronic (5) Gastrointestinal bleeding Current visit: Yes Status: Acute - Narrative A/P Narrative: #1. GI. This patient presents with near syncope, and severe hypotension. He has melanotic stools, suggestive of an acute GI bleed. He has significant anemia, although this may be somewhat more chronic. -He was resuscitated for hypovolemic shock, with IV fluids. -Transfuse 2 units packed red blood cells. -GI consult. -IV Protonix -N.p.o. until after GI consult. 2. CODE STATUS: Previous CODE STATUS was DNR. The patient indicates he would like to continue with this status. 3. DVT prophylaxis: SCDs. 4. SIRS syndrome/hypovolemic shock. This is presumably related to a GI bleed. Continue resuscitation with IV fluids and packed red blood cells. -His son seems convinced that his blood pressure often runs quite low, and his anemia appears more chronic. So it is a little unclear at this point if this was an acute event. He is clearly weaker over the last couple of days than is normal, according to his son. It is possible that there was some other intervening event, including cardiac or pulmonary event. His hydrocephalus also appears to be slowly worsening. Or he could have a relatively acute GI bleed. GI has been consulted. Check cardiac enzymes. EKG looked okay. He could also have occult pneumonia, as he did just have pneumonia recently. We will plan on checking follow-up chest x-ray after hydration. 5. Endocrine. Type 2 diabetes. Manage with insulin. 6. Glaucoma. Continue current eyedrops. 7. Pulmonary. -Status post recent community-acquired pneumonia. 8. BPH. Continue Flomax. 9. Anxiety. Continue sertraline. Use as needed Ativan if necessary.. This visit is taken approximately 70 minutes of her today, to review the patient 's old records, reviewed case with the ER MD, interview and examine the patient , interviewed the patient's son, and write orders.
[2016-09-10] MEDS ORDERED: POTASSIUM CHLORIDE 20 MEQ in 0.9 % SODIUM CHLORIDE 1,000 ML IV SCH (14:06)
[2016-09-10] MEDS ORDERED: DEXTROSE 50% 50 ML VIAL IV PRN (14:06)
[2016-09-10] MEDS ORDERED: ONDANSETRON 4 MG/2 ML VIAL IV PRN (14:06)
[2016-09-10] MEDS ORDERED: ALBUTEROL SULFATE 2.5 MG/3 ML NEBULIZER NEB PRN (14:06)
[2016-09-10] MEDS ORDERED: MAGNESIUM HYDROXIDE 30 ML ORAL.SUSP PO PRN (14:06)
[2016-09-10] MEDS ORDERED: VASOPRESSIN 20 UNIT in DEXTROSE 5% IN WATER 99 ML IV PRN (14:06)
[2016-09-10] MEDS ORDERED: LORazepam 2 MG/ML VIAL IV PRN (14:06)
[2016-09-10] MEDS ORDERED: NALOXONE HCL 0.4 MG/ML VIAL IV PRN (14:06)
[2016-09-10] MEDS ORDERED: ACETAMINOPHEN 325 MG TABLET PO PRN (14:06)
[2016-09-10] MEDS: INSULIN LISPRO 1 UNIT/0.01 ML UNIT SQ SCH ×3 (14:24→23:40)
[2016-09-10] MEDS: 0.9 % SODIUM CHLORIDE 10 ML SYRINGE IV SCH ×2 (14:27→21:26)
[2016-09-10] MEDS: NACL 0.9% W/KCL 20MEQ 1,000 ML IV SCH ×3 (14:31→21:40)
[2016-09-10] MEDS ORDERED: ETHANOLAMINE OLEATE 5% 2 ML AMP IJ ONE (17:42)
[2016-09-10] MEDS ORDERED: EPINEPHrine 1 MG/ML (1:1000) VIAL IJ ONE (17:42)
[2016-09-10] MEDS ORDERED: MIDAZOLAM 2 MG/2 ML VIAL IV SCH (17:45)
[2016-09-10] MEDS ORDERED: PROPOFOL 200 MG/20 ML VIAL IV SCH (17:45)
[2016-09-10] MEDS ORDERED: PROPOFOL 20 ML IV ONE (17:57)
[2016-09-10] MEDS ORDERED: MIDAZOLAM 2 MG/2 ML VIAL ONE (17:57)
[2016-09-10] MEDS ORDERED: EPINEPHrine 1 MG/ML (1:1000) VIAL ONE (17:58)
[2016-09-10] MEDS: PANTOPRAZOLE 80 MG in 0.9 % SODIUM CHLORIDE 100 ML IV SCH (18:33)
[2016-09-11 05:33] LABS: Basophils # (Auto) 0.1 K/mcL (0.0-0.3); Basophils % (Auto) 0.9 % (0.0-2.0); Eosinophils # (Auto) 0.2 K/mcL (0.0-0.7); Eosinophils % (Auto) 3.4 % (0.0-7.0); Granulocytes % (Auto) 67.4 % (38.0-78.0); Lymphocytes # (Auto) 1.4 K/mcL (1.5-4.8); Mean Corpuscular HGB Conc 33.3 g/dL (31.0-36.0); Mean Corpuscular Hemoglobin 29.9 pg (26.0-34.0); Monocytes # (Auto) 0.7 K/mcL (0.1-0.9); Monocytes % (Auto) 9.3 % (1.0-12.0); Platelet Count 284 K/mcL (140-440); RBC 3.36 M/mcL (4.50-5.90); Red Cell Distribution Width 16.7 % (11.5-14.5)
[2016-09-11] MEDS: INSULIN LISPRO 1 UNIT/0.01 ML UNIT SQ SCH ×5 (06:05→20:31)
[2016-09-11] MEDS: 0.9 % SODIUM CHLORIDE 10 ML SYRINGE IV SCH ×4 (06:05→21:26)
[2016-09-11] MEDS: PANTOPRAZOLE 80 MG in 0.9 % SODIUM CHLORIDE 100 ML IV SCH ×2 (06:09→16:31)
[2016-09-11 06:45] LABS: ALT/SGPT 11 U/l (0-40); Albumin 2.9 gm/dL (3.2-5.2); Alkaline Phosphatase 89 U/L (39-117); Bilirubin,Direct < 0.2 mg/dL (0.0-0.3); Blood Urea Nitrogen 25 mg/dl (8-23); Gamma Glutamyl Transpeptidase 15 U/L (8-61); Magnesium 2.1 mg/dL (1.6-2.5); Uric Acid 4.8 mg/dL (2.5-8.0)
[2016-09-11] MEDS ORDERED: PANTOPRAZOLE 40 MG VIAL IV SCH (07:30)
[2016-09-11] MEDS: NACL 0.9% W/KCL 20MEQ 1,000 ML IV SCH (08:53)
[2016-09-11] MEDS ORDERED: DEXTROSE 50% 50 ML VIAL IV PRN ×3 (09:54→12:25)
--- NOTE | 2016-09-11 12:09 | Internal Med Progress Note ---
Medical - PN: Subj Patient information: Note initiated : 09/11/16 at 12:09 pm Patient: Roverto Marley 81 y/o M admitted on 09/10/16 for Weakness/Anemia, Gastrointestinal Bleeding. Interval history: September 10, 2016: History of present illness: Mr. Marley is a 81 year old man. This patient presents to the emergency room today complaining of weakness and collapse. ER evaluation was suggestive of GI bleed, with melena for at least one day, and anemia. He also presented with hypotension, with systolic blood pressure in the 60s. This responded to IV fluids. This patient was just admitted on July 22, 2016 from [facility], with worsening shortness of breath, and was diagnosed with community-acquired pneumonia.. Prior to that he was admitted in April for a diabetic foot ulcer , and then transferred up to [facility] for wound care. His son tells me that he has been transfused for anemia at least a couple of times this year, but neither the patient nor his son can recall any specific workup for the anemia. They cannot recall him ever having either upper endoscopy or colonoscopy. The patient says he was feeling well this morning when he first woke up around 3 AM. He got up to use the bathroom, and notes he was wearing socks instead of shoes. He reports that he slipped on the floor, and fell and banged his head and shoulder. His knees felt too weak to get up, so he laid on the floor for at least a half an hour, before he was able to locate staff to help him. They got him up into a wheelchair and then back to bed. This morning he reportedly walks to and from breakfast at the facility, but was just feeling rather tired and feeling like his knees were going to give out on him. He was subsequently sent to the emergency room for further evaluation. His systolic blood pressure on arrival to the ER was reported as in the 60s. He subsequently had a very dark looking stool. The patient says he has had black stools for at least several months, but has also been taking iron, and is not sure when either of those started. He denies any NSAID use. He has not had abdominal pain, nausea or vomiting. His son says his blood pressure tends to run very low, so his son is not convinced that his low blood pressure today was something new. Looking over his chart, he has had significant anemia, at least since March. I called his primary care office, Dr. Dunham, and she is out of town, but they looked at his chart for me, and they do not see any evidence that anemia was never addressed. They do note that he did not follow-up with their office for a 2 or 3 year. Otherwise, the patient has no particular complaints, although his head and face are sore from his fall this morning. He did bang his head and has a small abrasion across the bridge of his nose. He otherwise denies recent fever or chills, dizziness, blurry vision, new ear symptoms, sore throat or cough, chest pain or palpitations, shortness of breath, abdominal pain, nausea or vomiting, diarrhea or constipation, bright red blood per rectum. He does have fairly severe urinary urgency, which sounds fairly chronic. September 11: This morning, the patient says he is feeling better. He feels that his legs are a bit stronger. He otherwise denies fever chills, headaches or dizziness, chest pain or palpitations, shortness of breath, abdominal pain, nausea or vomiting, diarrhea or constipation, dysuria. Physical therapy notes that the patient is still limited by weakness and fatigue , and will likely require ongoing rehab for strengthening, gait and balance. - Constitutional Vitals: Vital Signs Temp Pulse Resp BP Pulse Ox 97.1 F 74 15 154/88 97 09/11/16 08:01 09/10/16 20:07 09/11/16 11:16 09/11/16 11:16 09/11/16 07:50 Period Temp Pulse Resp BP Sys/Saucedo Pulse Ox Last 24 Hr 97.1 F-98.1 F 68-82 12-25 100-159/42-109 95-100 Intake and Output 09/10/16 09/11/16 09/11/16 21:59 05:59 13:59 Intake Total 783 / 783 100 / 100 2265 / 2265 Output Total 450 / 450 550 / 550 800 / 800 Balance 333 / 333 -450 / -450 1465 / 1465 Weight 193 lb 9.054 oz Intake & Output: Intake & Output 09/10/16 09/11/16 09/11/16 21:59 05:59 13:59 Intake Total 783 / 783 100 / 100 2265 / 2265 Output Total 450 / 450 550 / 550 800 / 800 Balance 333 / 333 -450 / -450 1465 / 1465 Weight 193 lb 9.054 oz Intake: IV 483 / 483 100 / 100 2265 / 2265 Lactated Ringers 1,000 ml 483 / 483 @ 100 mls/hr IV .Q10H ONE Rx#:[id number] NaCl 0.9% W/KCl 20Meq 915 / 915 1000ML 1,000 ml @ 80 mls/ hr IV .[id number] TERRA Rx#: [id number] Protonix 80 mg In Sodium 100 / 100 Chloride 0.9% 100 ml @ 8 MG/HR 10 mls/hr IV Q10H TERRA Rx#:[id number] Blood Product 300 / 300 Output: Void Amount 450 / 450 550 / 550 800 / 800 Other: # Bowel Movements 1 # of times incontinent of 1 1 Bowels On exam, he is sitting up in a chair. He does appear fatigued, but insists he feels better. Neck is supple without obvious lymphadenopathy or JVD. Cardiac exam shows regular rate and rhythm. Lungs: Are clear to auscultation, Abdomen: Is soft and nontender with normal bowel sounds. Extremities: Show minimal edema. Neurologic exam: The patient does appear a bit fatigued, and a bit forgetful, but otherwise is calm and cooperative. Motor exam is grossly nonfocal. Medical - PN: Obj Da - Labs CBC & Chem 7: 09/11/16 04:18 09/11/16 04:18 Labs: Abnormal Lab Results 09/11/16 09/11/16 09/10/16 04:18 04:18 22:02 RBC 3.36 L Hgb 10.1 L 10.1 L Hct 30.2 L 29.8 L RDW 16.7 H MPV 6.0 L Lymph # (Auto) 1.4 L Anion Gap 7.0 L BUN 25 H Creatinine 1.3 H Glucose 114 H Calcium 8.0 L Total Protein 5.7 L Albumin 2.9 L 09/10/16 17:46 RBC Hgb 9.3 L Hct 27.6 L RDW MPV Lymph # (Auto) Anion Gap BUN Creatinine Glucose Calcium Total Protein Albumin Malini 27: Differential on the CBC shows normal indices, except for RDW of 18. 1+ anisocytosis Lactic acid is elevated at 2.4. Follow-up lactic acid was normal at 0.7. EKG shows normal sinus rhythm with a rate of about 90. Left axis deviation. No acute ST-T changes. August 26, 2016 labs: Troponin T: Elevated at 0.04 BNP elevated at 1328 Urine culture: 10-20,000 enterococcus, sensitive to ampicillin, nitrofurantoin, penicillin, vancomycin. Resistant to ciprofloxacin and gentamicin Head CT: Showed mild hydrocephalus, which was worse when compared with April 2016. 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 White matter ischemia in the frontal and parietal lobes. Left-sided mastoiditis and otitis. July 25, 2016: CBC showed hemoglobin of 8.7 with hematocrit of 26 and RDW of 17 April 23, 2016: CBC showed hemoglobin of 11 with hematocrit of 33.24 March 2016: Hemoglobin 9.3, hematocrit 28. Meds: Medications Acetaminophen (Tylenol) 650 mg PO Q4-6HP PRN PRN Reason: PAIN/FEVER > 101 Albuterol Sulfate (Ventolin) 2.5 mg NEB Q4HRT PRN PRN Reason: Shortness Of Breath Dextrose (Dextrose 50%) 0 ml IV UD PRN PRN Reason: Hypoglycemia Dextrose (Dextrose 50%) 0 ml IV UD PRN PRN Reason: Hypoglycemia Diagnostic Test (Pha) (Accu-Chek) 1 each FS ACHS [facility] Last Admin: 09/11/16 10:05 Dose: 1 each Pantoprazole Sodium 80 mg/ (Sodium Chloride) 100 mls @ 10 mls/hr IV Q10H [facility] PRN Reason: 8 MG/HR Last Admin: 09/11/16 06:09 Dose: 8 mg/hr, 10 mls/hr Vasopressin 20 unit/ Dextrose 100 mls @ 12 mls/hr IV Q8HP PRN; Protocol; 0.04 UNIT/MIN PRN Reason: TITRATE TO KEEP MAP > 65 Potassium Chloride/Sodium Chloride (Nacl 0.9% W/Kcl 20meq 1000ml) 1,000 mls @ 80 mls/hr IV .[id number] [facility] Last Admin: 09/11/16 08:53 Dose: 80 mls/hr Insulin Human Lispro (Humalog) 0 unit SQ ACHS [facility] PRN Reason: Protocol Last Admin: 09/11/16 10:05 Dose: Not Given Lorazepam (Ativan) 0.5 mg IV Q2HP PRN PRN Reason: ANXIETY/SEDATION Magnesium Hydroxide (Milk Of Magnesia) 30 ml PO DAILYP PRN PRN Reason: Constipation Morphine Sulfate (Morphine) 1 mg IV Q2HP PRN PRN Reason: Pain Naloxone HCl (Narcan) 0.1 mg IV Q2MIN PRN PRN Reason: Opiate Reversal Ondansetron HCl (Zofran) 4 mg IV Q4-6HP PRN PRN Reason: Nausea And Vomiting Sodium Chloride (Saline Flush) 10 ml IV Q8 [facility] Last Admin: 09/11/16 06:05 Dose: 10 ml Medical - PN: A/P - Time Spent With Patient Total time spent is greater than 50% in coordination of care (as documented) at patient's floor/unit and/or counseling patient: 15 - 24 minutes (1) Hypotension Status: Acute Current Visit: Yes (2) Near syncope Status: Acute Current Visit: Yes (3) 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 Status: Chronic Current Visit: No (4) Anemia Status: Chronic Current Visit: Yes (5) Gastrointestinal bleeding Status: Acute Current Visit: Yes - Narrative A/P Narrative: #1. GI. This patient presents with near syncope, and severe hypotension. He has melanotic stools, suggestive of an acute GI bleed. He has significant anemia, although this may be somewhat more chronic. -He was resuscitated for hypovolemic shock, with IV fluids. He was given 2 units of packed red blood cells. He did undergo upper endoscopy last evening with Dr. Weeks. He did find two partially healed ulcers. No active bleeding was found. -Patient will remain on a Protonix drip for the rest of today. We will then switch him over to oral. -Continue to monitor hemoglobin. Recheck in a.m. -I again reminded him to be sure he is not taking any anti-inflammatory medications [id number]. He does not think that he has been. 2. CODE STATUS: Previous CODE STATUS was DNR. The patient indicates he would like to continue with this status. 3. DVT prophylaxis: SCDs. 4. SIRS syndrome/hypovolemic shock. Resolved. - His hydrocephalus also appears to be slowly worsening. 5. Endocrine. Type 2 diabetes. Manage with insulin. Glucoses ranging from 112-200. 6. Glaucoma. Continue current eyedrops. 7. Pulmonary. -Status post recent community-acquired pneumonia. 8. BPH. Continue Flomax. 9. Anxiety. Continue sertraline. Use as needed Ativan if necessary.. 10. Renal dysfunction. This looks improved today. Medical - PN: Qual - VTE Deep Vein Thrombosis/Pulmonary Embolism Present on Admission: No
[2016-09-11] MEDS ORDERED: ALBUTEROL SULFATE 2.5 MG/3 ML NEBULIZER NEB PRN (12:25)
[2016-09-11] MEDS ORDERED: LORazepam 2 MG/ML VIAL IV PRN (12:25)
[2016-09-11] MEDS ORDERED: ONDANSETRON 4 MG/2 ML VIAL IV PRN (12:25)
[2016-09-11] MEDS ORDERED: ACETAMINOPHEN 325 MG TABLET PO PRN (12:25)
[2016-09-11] MEDS ORDERED: NALOXONE HCL 0.4 MG/ML VIAL IV PRN (12:25)
[2016-09-11] MEDS ORDERED: MAGNESIUM HYDROXIDE 30 ML ORAL.SUSP PO PRN (12:25)
[2016-09-12] MEDS: PANTOPRAZOLE 80 MG in 0.9 % SODIUM CHLORIDE 100 ML IV SCH (02:57)
[2016-09-12 06:11] LABS: Basophils # (Auto) 0 K/mcL (0.0-0.3); Basophils % (Auto) 0.5 % (0.0-2.0); Eosinophils # (Auto) 0.3 K/mcL (0.0-0.7); Eosinophils % (Auto) 3.3 % (0.0-7.0); Granulocytes % (Auto) 60.6 % (38.0-78.0); Lymphocytes # (Auto) 1.8 K/mcL (1.5-4.8); Lymphocytes % (Auto) 23.3 % (15.5-49.0); Mean Cell Volume 89.1 fL (80.0-100.0); Mean Corpuscular HGB Conc 33.4 g/dL (31.0-36.0); Mean Corpuscular Hemoglobin 29.8 pg (26.0-34.0); Monocytes % (Auto) 12.3 % (1.0-12.0); Platelet Count 267 K/mcL (140-440); RBC 3.44 M/mcL (4.50-5.90); Red Cell Distribution Width 17.1 % (11.5-14.5)
[2016-09-12 06:30] LABS: ALT/SGPT 12 U/l (0-40); Alkaline Phosphatase 87 U/L (39-117); Bilirubin,Direct < 0.2 mg/dL (0.0-0.3); Blood Urea Nitrogen 25 mg/dl (8-23); Gamma Glutamyl Transpeptidase 15 U/L (8-61); Magnesium 2.1 mg/dL (1.6-2.5); Uric Acid 4.5 mg/dL (2.5-8.0)
[2016-09-12] MEDS: PANTOPRAZOLE 40 MG TABLET PO SCH (06:59)
[2016-09-12] MEDS: 0.9 % SODIUM CHLORIDE 10 ML SYRINGE IV SCH ×3 (06:59→20:08)
[2016-09-12] MEDS: INSULIN LISPRO 1 UNIT/0.01 ML UNIT SQ SCH ×4 (07:02→20:07)
--- NOTE | 2016-09-12 10:27 | Internal Med Progress Note ---
Medical - PN: Subj Patient information: Note initiated : 09/12/16 at 10:27 am Patient: Roverot Marley 81 y/o M admitted on 09/10/16 for Weakness/Anemia, Gastrointestinal Bleeding. Interval history: September 10, 2016: History of present illness: Mr. Marley is a 81 year old man. This patient presents to the emergency room today complaining of weakness and collapse. ER evaluation was suggestive of GI bleed, with melena for at least one day, and anemia. He also presented with hypotension, with systolic blood pressure in the 60s. This responded to IV fluids. This patient was just admitted on July 22, 2016 from [facility], with worsening shortness of breath, and was diagnosed with community-acquired pneumonia.. Prior to that he was admitted in April for a diabetic foot ulcer , and then transferred up to [facility] for wound care. His son tells me that he has been transfused for anemia at least a couple of times this year, but neither the patient nor his son can recall any specific workup for the anemia. They cannot recall him ever having either upper endoscopy or colonoscopy. The patient says he was feeling well this morning when he first woke up around 3 AM. He got up to use the bathroom, and notes he was wearing socks instead of shoes. He reports that he slipped on the floor, and fell and banged his head and shoulder. His knees felt too weak to get up, so he laid on the floor for at least a half an hour, before he was able to locate staff to help him. They got him up into a wheelchair and then back to bed. This morning he reportedly walks to and from breakfast at the facility, but was just feeling rather tired and feeling like his knees were going to give out on him. He was subsequently sent to the emergency room for further evaluation. His systolic blood pressure on arrival to the ER was reported as in the 60s. He subsequently had a very dark looking stool. The patient says he has had black stools for at least several months, but has also been taking iron, and is not sure when either of those started. He denies any NSAID use. He has not had abdominal pain, nausea or vomiting. His son says his blood pressure tends to run very low, so his son is not convinced that his low blood pressure today was something new. Looking over his chart, he has had significant anemia, at least since March. I called his primary care office, Dr. Dunham, and she is out of town, but they looked at his chart for me, and they do not see any evidence that anemia was never addressed. They do note that he did not follow-up with their office for a 2 or 3 year. Otherwise, the patient has no particular complaints, although his head and face are sore from his fall this morning. He did bang his head and has a small abrasion across the bridge of his nose. He otherwise denies recent fever or chills, dizziness, blurry vision, new ear symptoms, sore throat or cough, chest pain or palpitations, shortness of breath, abdominal pain, nausea or vomiting, diarrhea or constipation, bright red blood per rectum. He does have fairly severe urinary urgency, which sounds fairly chronic. September 11: This morning, the patient says he is feeling better. He feels that his legs are a bit stronger. He otherwise denies fever chills, headaches or dizziness, chest pain or palpitations, shortness of breath, abdominal pain, nausea or vomiting, diarrhea or constipation, dysuria. Physical therapy notes that the patient is still limited by weakness and fatigue , and will likely require ongoing rehab for strengthening, gait and balance. September 12: This morning, the patient says he is feeling okay. However the nurses know that he complains of dizziness, and seems forgetful at times. He does have some urinary incontinence. This morning he tried to stand up to use a urinal, and and ended up falling backward into the bed. He tells me that he did feel a little lightheaded, and felt like may be the room was spinning this morning, but he denies being too weak to go home. However physical therapy disagrees, noting that he is very high fall risk. Otherwise, he denies fever or chills, headache, chest pain or palpitations, shortness of breath, GI or symptoms. - Constitutional Vitals: Vital Signs Temp Pulse Resp BP Pulse Ox 97.6 F 89 20 149/82 93 09/12/16 06:35 09/12/16 07:28 09/12/16 06:35 09/12/16 06:35 09/12/16 07:28 Period Temp Pulse Resp BP Sys/Saucedo Pulse Ox Last 24 Hr 96.6 F-97.8 F 84-95 15-26 147-168/70-88 91-95 Intake and Output 09/11/16 09/12/16 09/12/16 21:59 05:59 13:59 Intake Total 340 / 340 200 / 200 Output Total 500 / 500 204 / 204 2 / 2 Balance -160 / -160 -4 / -4 -2 / -2 Weight 188 lb 8 oz Intake & Output: Intake & Output 09/11/16 09/12/16 09/12/16 21:59 05:59 13:59 Intake Total 340 / 340 200 / 200 Output Total 500 / 500 204 / 204 2 / 2 Balance -160 / -160 -4 / -4 -2 / -2 Weight 188 lb 8 oz Intake: IV 100 / 100 100 / 100 Protonix 80 mg In Sodium 100 / 100 Chloride 0.9% 100 ml @ 8 MG/HR 10 mls/hr IV Q10H [facility] Rx#:[id number] Oral 240 / 240 100 / 100 Output: Void Amount 500 / 500 200 / 200 # of times incontinent of 4 / 4 2 / 2 urine Other: Meal Dinner Percent of Meal Consumed 100% Feeding Ability Independent On exam, he still appears quite fatigued, and a bit forgetful. Neck is supple without obvious lymphadenopathy or JVD. Cardiac exam shows regular rate and rhythm. Lungs show a few basilar crackles today. Abdomen is soft and nontender. Extremities show no significant edema. Neurologic exam: Patient seems weak and a little confused. Otherwise, exam is grossly nonfocal. Medical - PN: Obj Da - Labs CBC & Chem 7: 09/12/16 04:25 09/12/16 04:25 Labs: Abnormal Lab Results 09/12/16 09/12/16 09/11/16 04:25 04:25 04:18 RBC 3.44 L 3.36 L Hgb 10.2 L 10.1 L Hct 30.6 L 30.2 L RDW 17.1 H 16.7 H MPV 6.4 L 6.0 L [place] % (Auto) 12.3 H Lymph # (Auto) 1.4 L [place] # (Auto) 1.0 H Anion Gap BUN 25 H Creatinine 1.4 H Glucose 231 H Calcium 8.3 L Phosphorus 2.6 L Total Protein Albumin 3.0 L 09/11/16 09/10/1617 04:18 22:02 17:46 RBC Hgb 10.1 L 9.3 L Hct 29.8 L 27.6 L RDW MPV [place] % (Auto) Lymph # (Auto) [place] # (Auto) Anion Gap 7.0 L BUN 25 H Creatinine 1.3 H Glucose 114 H Calcium 8.0 L Phosphorus Total Protein 5.7 L Albumin 2.9 L September 12: Head CT: Moderate panventricular enlargement superimposed upon underlying atrophy, suggesting mild normal pressure hydrocephalus. Chronic ischemic changes and remote lacunar infarct noted in the basal ganglia. No intracerebral hemorrhage. Moderate left mastoiditis and left otitis media. September 10: Differential on the CBC shows normal indices, except for RDW of 18. 1+ anisocytosis Lactic acid is elevated at 2.4. Follow-up lactic acid was normal at 0.7. EKG shows normal sinus rhythm with a rate of about 90. Left axis deviation. No acute ST-T changes. August 26, 2016 labs: Troponin T: Elevated at 0.04 BNP elevated at 1328 Urine culture: 10-20,000 enterococcus, sensitive to ampicillin, nitrofurantoin, penicillin, vancomycin. Resistant to ciprofloxacin and gentamicin Head CT: Showed mild hydrocephalus, which was worse when compared with April 2016. 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 White matter ischemia in the frontal and parietal lobes. Left-sided mastoiditis and otitis. July 25, 2016: CBC showed hemoglobin of 8.7 with hematocrit of 26 and RDW of 17 April 23, 2016: CBC showed hemoglobin of 11 with hematocrit of 33.24 March 2016: Hemoglobin 9.3, hematocrit 28. Meds: Medications Acetaminophen (Tylenol) 650 mg PO Q4-6HP PRN PRN Reason: PAIN/FEVER > 101 Albuterol Sulfate (Ventolin) 2.5 mg NEB Q4HRT PRN PRN Reason: Shortness Of Breath Dextrose (Dextrose 50%) 0 ml IV UD PRN PRN Reason: Hypoglycemia Diagnostic Test (Pha) (Accu-Chek) 1 each FS ACHS [facility] Last Admin: 09/12/16 07:01 Dose: 1 each Insulin Human Lispro (Humalog) 0 unit SQ ACHS [facility] PRN Reason: Protocol Last Admin: 09/12/16 07:02 Dose: 3 unit Lorazepam (Ativan) 0.5 mg IV Q2HP PRN PRN Reason: ANXIETY/SEDATION Magnesium Hydroxide (Milk Of Magnesia) 30 ml PO DAILYP PRN PRN Reason: Constipation Morphine Sulfate (Morphine) 1 mg IV Q2HP PRN PRN Reason: Pain Naloxone HCl (Narcan) 0.1 mg IV Q2MIN PRN PRN Reason: Opiate Reversal Ondansetron HCl (Zofran) 4 mg IV Q4-6HP PRN PRN Reason: Nausea And Vomiting Pantoprazole Sodium (Protonix) 40 mg PO QAMAC [facility] Last Admin: 09/12/16 06:59 Dose: 40 mg Sodium Chloride (Saline Flush) 10 ml IV Q8 [facility] Last Admin: 09/12/16 06:59 Dose: 10 ml Medical - PN: A/P - Time Spent With Patient Total time spent is greater than 50% in coordination of care (as documented) at patient's floor/unit and/or counseling patient: 25 - 35 minutes (1) Hypotension Status: Acute Current Visit: Yes (2) Near syncope Status: Acute Current Visit: Yes (3) 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 Status: Chronic Current Visit: No (4) Anemia Status: Chronic Current Visit: Yes (5) Gastrointestinal bleeding Status: Acute Current Visit: Yes - Narrative A/P Narrative: #1. GI. This patient presents with near syncope, and severe hypotension. He has melanotic stools, suggestive of an acute GI bleed. He has significant anemia, although this may be somewhat more chronic. -He was resuscitated for hypovolemic shock, with IV fluids. He was given 2 units of packed red blood cells. He did undergo upper endoscopy with Dr. Weeks. He did find two partially healed ulcers. No active bleeding was found. -Patient will remain on a Protonix. -Continue to monitor hemoglobin. -I again reminded him to be sure he is not taking any anti-inflammatory medications [id number]. 2. CODE STATUS: Previous CODE STATUS was DNR. The patient indicates he would like to continue with this status. 3. DVT prophylaxis: SCDs. 4. SIRS syndrome/hypovolemic shock. Resolved. 5. Endocrine. Type 2 diabetes. Manage with insulin. Glucoses ranging from 112-200. 6. Glaucoma. Continue current eyedrops. 7. Pulmonary. -Status post recent community-acquired pneumonia. 8. BPH. Continue Flomax. 9. Anxiety. Continue sertraline. Use as needed Ativan if necessary.. 10. Renal dysfunction. This looks improved today. #11. Neurologic. He was having some dizziness or perhaps vertigo this morning. Head CT does show mild hydrocephalus, in addition to underlying ischemic changes, and left mastoiditis and otitis media. -The infectious changes may be contributing to his unsteadiness on his feet. I will start IV Rocephin this evening. Consider referral to neurology after discharge, to see if it is worth addressing the hydrocephalus. This visit took approximately 25 minutes today, to interview and examine the patient, review test results, review plan of care with staff, and write orders. Medical - PN: Qual - VTE Deep Vein Thrombosis/Pulmonary Embolism Present on Admission: No
--- NOTE | 2016-09-12 13:08 | Cat Scan Report ---
CLINICAL INFORMATION: Trauma - fall with dizziness COMPARISON: 08/26/2016 TECHNIQUE: 2.5 mm helical slices were obtained in the skull base to vertex. Following reconstruction, axial reformatted images were reviewed at bone and parenchymal windows. FINDINGS: The ventricles are moderately enlarged with disproportionate enlargement compared to the enlarged sulci fissures and cisterns. Findings are suggestive of normal pressure hydrocephalus superimposed upon atrophy. No change from the previous study. There are no extra-axial fluid collections identified. Moderate chronic ischemic changes in the the cerebral white matter again noted. Scattered remote lacunar infarcts in the basal ganglia disease and cerebral white matter are stable. There is no intracerebral hemorrhage, mass effect or edema. Bone windows again show moderate left mastoiditis and mild left otitis IMPRESSION: Moderate panventricular enlargement superimposed upon underlying atrophy suggesting mild normal pressure hydrocephalus with underlying atrophy. Chronic ischemic changes in cerebral white matter and remote lacunar infarct in the basal ganglia again noted. No intracerebral hemorrhage or other acute finding. Moderate left mastoiditis and also left otitis media Interpreted and Authenticated by: Ernst Jessica 09/12/16
--- NOTE | 2016-09-12 13:09 | Surgical Pathology Report ---
HISTOLOGY SPECIMEN MICROSCOPIC DIAGNOSIS SPECIMEN A - STOMACH, ANTRUM, BIOPSY: -- MILD CHRONIC GASTRITIS WITH FOCAL EDEMA AND FEATURES CONSISTENT WITH REACTIVE GASTROPATHY. -- ALCIAN YELLOW STAIN IS NEGATIVE FOR HELICOBACTER ORGANISMS (ADEQUATE TECHNICAL CONTROL). -- NO EVIDENCE OF INTESTINAL METAPLASIA, DYSPLASIA, OR MALIGNANCY. SPECIMEN B - ESOPHAGUS, DISTAL, BIOPSY: -- SQUAMOUS MUCOSA WITH FOCAL INTRAEPITHELIAL EOSINOPHILS/NEUTROPHILS (FOCALLY GREATER THAN 20 IN A HPF) AND MILD REACTIVE CHANGES. -- PAS STAIN IS NEGATIVE FOR FUNGAL ORGANISMS (ADEQUATE TECHNICAL CONTROL). -- NO GLANDULAR MUCOSA IS PRESENT. -- NO EVIDENCE OF DYSPLASIA OR MALIGNANCY. (SE:masoud) CLINICAL HISTORY Upper GI bleed. PROCEDURAL IMPRESSION Gastritis; two partially healed ulcers; esophagitis. GROSS DESCRIPTION Specimen A: Received in formalin labeled antrum, are four fragments of omalley tissue ranging in size from 0.1 to 0.2 cm. Totally submitted - one cassette. Specimen B: Received in formalin labeled distal esophagus, are two fragments of white-omalley tissue 0.3 and 0.4 cm. Totally submitted - one cassette. (KGW:domenico) Electronically Signed by: Erma Adame D.O.
[2016-09-12] MEDS ORDERED: cefTRIAXone 2 GM in DEXTROSE 5% IN WATER 50 ML IV SCH (22:00)
[2016-09-12] MEDS ORDERED: cefTRIAXone 2 GM VIAL ONE (23:50)
[2016-09-13] MEDS: PANTOPRAZOLE 40 MG TABLET PO SCH (07:47)
[2016-09-13] MEDS: 0.9 % SODIUM CHLORIDE 10 ML SYRINGE IV SCH ×2 (07:47→13:43)
[2016-09-13 07:53] LABS: Basophils # (Auto) 0 K/mcL (0.0-0.3); Basophils % (Auto) 0.5 % (0.0-2.0); Eosinophils # (Auto) 0.2 K/mcL (0.0-0.7); Eosinophils % (Auto) 2.7 % (0.0-7.0); Granulocytes % (Auto) 67.3 % (38.0-78.0); Lymphocytes # (Auto) 1.9 K/mcL (1.5-4.8); Lymphocytes % (Auto) 21.6 % (15.5-49.0); Mean Cell Volume 89.1 fL (80.0-100.0); Mean Corpuscular HGB Conc 33.5 g/dL (31.0-36.0); Mean Corpuscular Hemoglobin 29.9 pg (26.0-34.0); Monocytes # (Auto) 0.7 K/mcL (0.1-0.9); Monocytes % (Auto) 7.9 % (1.0-12.0); Platelet Count 276 K/mcL (140-440); RBC 3.57 M/mcL (4.50-5.90); Red Cell Distribution Width 16.6 % (11.5-14.5)
[2016-09-13] MEDS: INSULIN LISPRO 1 UNIT/0.01 ML UNIT SQ SCH ×2 (08:13→11:28)
[2016-09-13 08:34] LABS: ALT/SGPT 12 U/l (0-40); Alkaline Phosphatase 88 U/L (39-117); Bilirubin,Direct < 0.2 mg/dL (0.0-0.3); Blood Urea Nitrogen 23 mg/dl (8-23); Gamma Glutamyl Transpeptidase 17 U/L (8-61); Uric Acid 4.5 mg/dL (2.5-8.0)
--- NOTE | 2016-09-13 11:21 | Discharge Summary ---
Medical - DS: Prov Patient information: Note initiated : 09/13/16 at 11:21 am Service Date, if different from initiated Date: [] Patient: Roverto Marley 81 y/o M admitted on 09/10/16 for Weakness/Anemia, Gastrointestinal Bleeding. Chief Complaint: [] Date of admission: 09/10/16 11:30 Discharge date: 09/13/16 Primary care physician: Ashely Dunham, nurse practitioner, phone #[phone] Admitting clinician: Berna Douglas Attending physician on discharge: Berna Douglas Medical - DS: Meds - Discharge Medications Prescriptions: Insulin Glargine, Human [Lantus] 27 unit SQ HS #1 Active and Home Medications: Additional discharge medications: Rocephin 1 g IV every 24 for the next 7 days, for otitis and mastoiditis. Please follow-up with your MD thereafter, to decide if he needs continued treatment with either IV or oral antibiotics Home Medications Ascorbic Acid [Vitamin C] 500 mg PO BID 03/21/16 [History Confirmed 09/10/16 Last Taken 07/22/16 20:00] Atorvastatin [Lipitor] 10 mg PO DAILY 03/21/16 [History Confirmed 09/10/16 Last Taken 07/22/16 08:00] Insulin Glargine, Human [Lantus] 22 unit SQ HS 03/21/16 [History Confirmed 09/10 Last Taken 07/22/16 20:00] Sertraline [Zoloft] 50 mg PO DAILY 03/21/16 [History Confirmed 09/10/16 Last Taken 07/22/16 08:00] Tamsulosin [Flomax] 0.4 mg PO DAILY 03/21/16 [History Confirmed 09/10/16 Last Taken 07/22/16 08:00] Combigan 0.2%-0.5% Eye Drops 1 drop BOTH EYES BID 04/19/16 [History Confirmed Last Taken 07/22/16 20:00] Travatan Z Ophth Drops 1 drop BOTH EYES HS 04/19/16 [History Confirmed 09/10/16 Last Taken 07/22/16 20:00] Acetaminophen [Tylenol] 650 mg PO Q4HP PRN 07/23/16 [History Confirmed 09/10/16 Last Taken Unknown] Calcium Carbonate [Calcium] 500 mg PO CCHS 07/23/16 [History Confirmed 09/10/16 Last Taken 07/22/16 17:00] Cod Liver Oil/Zinc Oxide [Desitin Diaper Rash 40% Paste] 1 gm TP DAILY PRN 07/23 [History Confirmed 09/10/16 Last Taken Unknown] Docusate Sodium [Colace] 100 mg PO BID 07/23/16 [History Confirmed 09/10/16 Last Taken 07/22/16 20:00] Ferrous Sulfate [Iron] 325 mg PO BIDCC 07/23/16 [History Confirmed 09/10/16 Last Taken 07/22/16 17:00] Folic Acid 1 mg PO DAILY 07/23/16 [History Confirmed 09/10/16 Last Taken 08:00] Insulin Lispro [Humalog] 0 unit SQ ACB 07/23/16 [History Confirmed 09/10/16 Last Taken 07/22/16 07:30] Insulin Lispro [Humalog] 0 unit SQ ACL 07/23/16 [History Confirmed 09/10/16 Last Taken 07/22/16 11:00] Insulin Lispro [Humalog] 0 unit SQ PC 07/23/16 [History Confirmed 09/10/16 Last Taken 07/22/16 18:00] Insulin Lispro [Humalog] 0 units SQ ACS 07/23/16 [History Confirmed 09/10/16 Last Taken 07/22/16 16:00] Methyl Salicylate/Menth/Camph [Salonpas Patch] 1 each TP DAILYP PRN 07/23/16 [ History Confirmed 09/10/16 Last Taken Unknown] Multivitamin [Multi-Day Vitamins] 1 each PO DAILY 07/23/16 [History Confirmed Last Taken 07/22/16 08:00] Omeprazole 20 mg PO BIDAC 07/23/16 [History Confirmed 09/10/16 Last Taken 16:30] Sennosides/Docusate Sodium [Senokot-S Tablet] 1 - 2 each PO DAILY 07/23/16 [ History Confirmed 09/10/16 Last Taken 07/22/16 08:00] Vitamin D3 5,000 unit PO DAILY 07/23/16 [History Confirmed 09/10/16 Last Taken 07/22/16 08:00] STOP -- diphenhydrAMINE [Benadryl] 25 mg PO HSP PRN 07/23/16 [History Confirmed 09/10/16 Last Taken Unknown] Medical - DS: Hosp Hospital course: Mr. Marley is a 81 year old M September 10, 2016: History of present illness: Mr. Marley is a 81 year old man. This patient presents to the emergency room today complaining of weakness and collapse. ER evaluation was suggestive of GI bleed, with melena for at least one day, and anemia. He also presented with hypotension, with systolic blood pressure in the 60s. This responded to IV fluids. This patient was just admitted on July 22, 2016 from [facility], with worsening shortness of breath, and was diagnosed with community-acquired pneumonia.. Prior to that he was admitted in April for a diabetic foot ulcer , and then transferred up to [facility] for wound care. His son tells me that he has been transfused for anemia at least a couple of times this year, but neither the patient nor his son can recall any specific workup for the anemia. They cannot recall him ever having either upper endoscopy or colonoscopy. The patient says he was feeling well this morning when he first woke up around 3 AM. He got up to use the bathroom, and notes he was wearing socks instead of shoes. He reports that he slipped on the floor, and fell and banged his head and shoulder. His knees felt too weak to get up, so he laid on the floor for at least a half an hour, before he was able to locate staff to help him. They got him up into a wheelchair and then back to bed. This morning he reportedly walks to and from breakfast at the facility, but was just feeling rather tired and feeling like his knees were going to give out on him. He was subsequently sent to the emergency room for further evaluation. His systolic blood pressure on arrival to the ER was reported as in the 60s. He subsequently had a very dark looking stool. The patient says he has had black stools for at least several months, but has also been taking iron, and is not sure when either of those started. He denies any NSAID use. He has not had abdominal pain, nausea or vomiting. His son says his blood pressure tends to run very low, so his son is not convinced that his low blood pressure today was something new. Looking over his chart, he has had significant anemia, at least since March. I called his primary care office, Dr. Dunham, and she is out of town, but they looked at his chart for me, and they do not see any evidence that anemia was never addressed. They do note that he did not follow-up with their office for a 2 or 3 year. Otherwise, the patient has no particular complaints, although his head and face are sore from his fall this morning. He did bang his head and has a small abrasion across the bridge of his nose. He otherwise denies recent fever or chills, dizziness, blurry vision, new ear symptoms, sore throat or cough, chest pain or palpitations, shortness of breath, abdominal pain, nausea or vomiting, diarrhea or constipation, bright red blood per rectum. He does have fairly severe urinary urgency, which sounds fairly chronic. September 11: This morning, the patient says he is feeling better. He feels that his legs are a bit stronger. He otherwise denies fever chills, headaches or dizziness, chest pain or palpitations, shortness of breath, abdominal pain, nausea or vomiting, diarrhea or constipation, dysuria. Physical therapy notes that the patient is still limited by weakness and fatigue , and will likely require ongoing rehab for strengthening, gait and balance. September 12: This morning, the patient says he is feeling okay. However the nurses know that he complains of dizziness, and seems forgetful at times. He does have some urinary incontinence. This morning he tried to stand up to use a urinal, and and ended up falling backward into the bed. He tells me that he did feel a little lightheaded, and felt like may be the room was spinning this morning, but he denies being too weak to go home. However physical therapy disagrees, noting that he is very high fall risk. Otherwise, he denies fever or chills, headache, chest pain or palpitations, shortness of breath, GI or symptoms. September 13: Hospital course: -This patient was admitted with hypotension and GI bleed, which may have been subacute. He underwent upper endoscopy, which showed 2 healing ulcers. He received 2 units of packed red blood cells. He has remained stable in terms of vital signs, since then. -The patient had taken a fall at home, prior to admission. He reported he just slipped because he was walking in socks. But here, he has been fairly unstable on his feet, and at high risk for falls. He has complained of some dizziness the last day or 2. He did have a head CT yesterday, that indicates an acute left-sided otitis and mastoiditis, which may be contributing to his symptoms. He was started on IV Rocephin for this. - He also has mild hydrocephalus, which apparently is a bit worse than April of this year. No bleeding or other acute changes were noted. Today, he reports he was able to walk with physical therapy, but he still exhibits weakness and fatigue, and needs ongoing strengthening. Otherwise, today, he denies fever or chills. He is denying headaches or dizziness at this time, but his speech is somewhat slow, and I do not think he is mentally at his baseline. He denies chest pain or shortness of breath, GI or symptoms, although the nurses note he has some bladder incontinence. On exam, , he still appears quite fatigued, and a bit forgetful. Neck is supple without obvious lymphadenopathy or JVD. Cardiac exam shows regular rate and rhythm. Lungs show a few basilar crackles today. Abdomen is soft and nontender. Extremities show no significant edema. Neurologic exam: Patient seems weak and a little confused. Otherwise, exam is grossly nonfocal. Assessment and plan: #1. GI. This patient presents with near syncope, and severe hypotension. He had melanotic stools, suggestive of an acute GI bleed. He had significant anemia, although this may be somewhat more chronic. -He was resuscitated for hypovolemic shock, with IV fluids. He was given 2 units of packed red blood cells. He did undergo upper endoscopy with Dr. Weeks. He did find two partially healed ulcers. No active bleeding was found. -Patient will remain on a proton pump inhibitor, either omeprazole or Protonix is fine. -Continue to monitor hemoglobin. Please recheck a CBC in 2-3 days. -I again reminded him to be sure he is not taking any anti-inflammatory medications [id number]. -I believe Dr. Weeks wanted to see him back in about 1 month, to consider whether or not to re-endoscope. 2. CODE STATUS: Previous CODE STATUS was DNR. The patient indicates he would like to continue with this status. 3. DVT prophylaxis: SCDs. 4. SIRS syndrome/hypovolemic shock. Resolved. 5. Endocrine. Type 2 diabetes. Manage with insulin. Glucoses ranging from 112-325. Continue sliding-scale. Increase Lantus from 20-27 units nightly. 6. Glaucoma. Continue current eyedrops. 7. Pulmonary. -Status post recent community-acquired pneumonia. 8. BPH. Continue Flomax. 9. Anxiety. Continue sertraline. Use as needed Ativan if necessary.. 10. Renal dysfunction. This looks improved today. #11. Neurologic. He was having some dizziness or perhaps vertigo this morning. Head CT does show mild hydrocephalus, in addition to underlying ischemic changes, and left mastoiditis and otitis media. -The otitis and mastoiditis may be contributing to his unsteadiness on his feet. -Continue IV Rocephin for at least 1 week. Then have him follow-up with his MD to decide about continuing IV versus oral antibiotics. ENT referral would be appropriate as well. -Consider referral to neurology after discharge, to see if it is worth addressing the hydrocephalus. Discharge diagnosis: GI bleed due to peptic ulcer disease. Fall and dizziness. Otitis media, m Secondary discharge diagnosis: Mastoiditis. Mild hydrocephalus, of uncertain clinical significance. Previous lacunar infarcts. Diabetes type 2, with only fair control. Ongoing weakness, with some associated dizziness, increasing risk for fall - Time Spent with Patient Total time spent providing and/or coordinating discharge services: Greater than 30 minutes (Proximally 40 minutes was spent so far today, reviewing patient's test results, reviewing plan of care with multidisciplinary team, interviewing and examining the patient, and writing orders.) Medical - DS: Exam - Constitutional Vitals: Vital Signs Temp Pulse Resp BP BP Pulse Ox 09/13/16 07:30 98.0 F 102 H 18 134/80 96 09/13/16 04:00 98.0 F 96 H 18 170/91 96 09/13/16 00:00 97.8 F 71 18 121/55 97 09/12/16 20:00 98.1 F 88 24 H 138/65 95 09/12/16 15:28 97.9 F 84 22 136/77 93 09/12/16 12:43 98.2 F 22 122/62 96 Intake and Output 09/12/16 09/13/16 09/13/16 21:59 05:59 13:59 Intake Total 400 / 400 250 / 250 480 / 480 Output Total 101 / 101 102 / 102 200 / 200 Balance 299 / 299 148 / 148 280 / 280 Intake: Oral 400 / 400 250 / 250 480 / 480 Output: Void Amount 100 / 100 100 / 100 200 / 200 # of times incontinent of 1 / 1 2 / 2 urine Other: Meal Dinner Breakfast Percent of Meal Consumed 100% 100% Feeding Ability Assist with Tray Set Up Weight 188 lb 8 oz Medical - DS: Data Labs on day of discharge: Labs from last 24 hours 09/13/16 09/13/16 05:05 05:05 WBC 9.0 RBC 3.57 L Hgb 10.6 L Hct 31.8 L MCV 89.1 MCH 29.9 MCHC 33.5 RDW 16.6 H Plt Count 276 MPV 6.4 L Gran % 67.3 Lymph % (Auto) 21.6 [place] % (Auto) 7.9 Eos % (Auto) 2.7 Baso % (Auto) 0.5 Gran # 6.1 Lymph # (Auto) 1.9 [place] # (Auto) 0.7 Eos # (Auto) 0.2 Baso # (Auto) 0 Sodium 136 Potassium 4.7 Chloride 98 Carbon Dioxide 24 Anion Gap 14.0 BUN 23 Creatinine 1.3 H GFR Calculation 50 Glucose 236 H Uric Acid 4.5 Calcium 8.6 Phosphorus 2.6 L Magnesium 2.0 Total Bilirubin 0.3 Direct Bilirubin < 0.2 GGT 17 AST 17 ALT 12 Alkaline Phosphatase 88 Lactate Dehydrogenase 229 Total Protein 6.1 Albumin 3.0 L Globulin 3.1 Albumin/Globulin Ratio 1.0 Triglycerides 58 September 12: Head CT: Moderate panventricular enlargement superimposed upon underlying atrophy, suggesting mild normal pressure hydrocephalus. Chronic ischemic changes and remote lacunar infarct noted in the basal ganglia. No intracerebral hemorrhage. Moderate left mastoiditis and left otitis media. September 10: Differential on the CBC shows normal indices, except for RDW of 18. 1+ anisocytosis Lactic acid is elevated at 2.4. Follow-up lactic acid was normal at 0.7. EKG shows normal sinus rhythm with a rate of about 90. Left axis deviation. No acute ST-T changes. August 26, 2016 labs: Troponin T: Elevated at 0.04 BNP elevated at 1328 Urine culture: 10-20,000 enterococcus, sensitive to ampicillin, nitrofurantoin, penicillin, vancomycin. Resistant to ciprofloxacin and gentamicin Head CT: Showed mild hydrocephalus, which was worse when compared with April 2016. 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 White matter ischemia in the frontal and parietal lobes. Left-sided mastoiditis and otitis. July 25, 2016: CBC showed hemoglobin of 8.7 with hematocrit of 26 and RDW of 17 April 23, 2016: CBC showed hemoglobin of 11 with hematocrit of 33.8 Medical - DS: A/P - Patient/Caregiver Discharge Instructions Activity: as per physical therapy Diet: Consistent Carbohydrate Prescriptions: Insulin Glargine, Human [Lantus] 27 unit SQ HS #1 Other Amb Orders: Aspiration Precautions Location: Determined By Patient Fall Risk Location: Determined By Patient OT Discharge Order Location: Determined By Patient Physical Therapy at Discharge - General Location: Determined By Patient ST Discharge Order Location: Determined By Patient Wound Care/Dressings Location: Determined By Patient Outpatient PICC Care Location: Determined By Patient Walker Location: Determined By Patient Basic Metabolic Panel Time Frame: 2 Days, Location: Determined By Patient Complete Blood Count Time Frame: 2 Days, Location: Determined By Patient - Problem Maintenance (1) Hypotension Status: Acute (2) Near syncope Status: Acute (3) 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
[2016-09-13] MEDS ORDERED: 0.9 % SODIUM CHLORIDE 10 ML SYRINGE IV SCH (14:00)
== END 2016-09-13 15:20 | DRG 377 ==
LOC: ED 08:59 → ICU 11:30 → MEDSUR 09-11 14:07
PROVIDERS: ADMIT Internal Medicine; ATTEND Internal Medicine

== ENCOUNTER 2017-01-17 13:21 | Observation (INO) ==
[2017-01-17] MEDS ORDERED: 0.9 % SODIUM CHLORIDE 250 ML IV SCH ×2 (13:30→16:34)
[2017-01-17] MEDS ORDERED: LACTATED RINGERS 1,000 ML IV ONE (13:59)
--- NOTE | 2017-01-17 14:21 | Emergency Department Note ---
Weakness HPI - General Chief complaint: Weakness Stated complaint: Low H&H Time Seen by Provider: 01/17/17 13:49 Source: patient Mode of arrival: wheelchair Limitations: no limitations - History of Present Illness HPI Narrative: 81-year-old male presents with weakness and fatigue 2-3 weeks. He was sent here from [place] for a hemoglobin of 6.9. He recently had an upper endoscopy to rule out bleeding but they did not find any active upper gastric bleeding. He is supposed to have a colonoscopy to rule out bleeding from the colon but he has not had that yet he states he has issues with constipation and has had black stools. He denies any amelie blood in his stool. He says he has had some chest pain on and off but is not in any pain now. He is not on any blood thinners. He is taking iron tabs. He just feels like he is sleeping a lot and does not have much energy. - Related Data Home Medications Medication Instructions Recorded Confirmed Ascorbic Acid [Vitamin C] 500 mg PO BID 03/21/16 11/05/16 Atorvastatin [Lipitor] 10 mg PO DAILY 03/21/16 11/05/16 Sertraline [Zoloft] 50 mg PO DAILY 03/21/16 11/05/16 Tamsulosin [Flomax] 0.4 mg PO DAILY 03/21/16 11/05/16 Combigan 0.2%-0.5% Eye Drops 1 drp BOTH EYES BID 04/19/16 11/05/16 Travatan Z Ophth Drops 1 drp BOTH EYES HS 04/19/16 09/20/16 Acetaminophen [Tylenol] 650 mg PO Q4HP PRN 07/23/16 11/05/16 Calcium Carbonate [Calcium] 500 mg PO CCHS 07/23/16 11/05/16 Cod Liver Oil/Zinc Oxide [Desitin 1 gm TP DAILY PRN 07/23/16 11/05/16 Diaper Rash 40% Paste] Docusate Sodium [Colace] 100 mg PO BID 07/23/16 11/05/16 Ferrous Sulfate [Iron] 325 mg PO BIDCC 07/23/16 11/05/16 Folic Acid 1 mg PO DAILY 07/23/16 11/05/16 Methyl Salicylate/Menth/Camph 1 each TP DAILYP PRN 07/23/16 11/05/16 [Salonpas Patch] Multivitamin [Multi-Day Vitamins] 1 each PO DAILY 07/23/16 11/05/16 Omeprazole 20 mg PO BIDAC 07/23/16 11/05/16 Sennosides/Docusate Sodium 1 - 2 each PO DAILY 07/23/16 11/05/16 [Senokot-S Tablet] Vitamin D3 5,000 unit PO DAILY 07/23/16 11/05/16 Insulin Glargine, Human [Lantus] 22 unit SQ HS 11/05/16 11/05/16 Previous Rx's Medication Instructions Recorded Accu-Chek 1 each FS ACHS strip 09/13/16 Insulin Lispro [Humalog] See Protocol SQ ACHS #1 ml 09/13/16 Magnesium Hydroxide [Milk of 30 ml PO DAILYP PRN 09/13/16 Magnesia] Allergies Allergy/AdvReac Type Severity Reaction Status Date / Time Penicillins Allergy Unknown Unknown Verified 10/08/16 00:30 Ertapenem [From Invanz] AdvReac Mild Weakness Verified 10/08/16 00:30 Review of Systems All systems ED: reviewed and negative except as stated. Past Medical History - Past Medical History Medical history: Reports: diabetes (insulin-dependent), hyperlipidemia, hypertension, TIA, other (large prostate) Surgical history ED: Reports: other (stent in right neck. Removal of a bone in his foot. knee surgery as a teenager) - Social History smoking status: Never smoker Alcohol use: Reports: None Drug use: Reports: none Physical Exam Limitations: no limitations General appearance: alert, in no apparent distress Head: atraumatic Eye: Present: normal appearance. Absent: conjunctival injection ENT: other (pallor) Neck: Present: normal inspection, full ROM Chest: Present: normal inspection, symmetric chest wall rise Respiratory: Present: normal lung sounds bilaterally Cardiovascular: Present: regular rate, normal heart sounds Abdominal: Present: soft, normal bowel sounds. Absent: tenderness Rectal: Present: heme (+) stool Extremities: Present: normal inspection, full ROM Neurological: Present: alert, oriented X3 Psychiatric: Present: normal affect, normal mood Skin: Present: warm, dry, pallor Course Vital Signs Temperature 97.8 F 01/17/17 13:21 Pulse Rate 80 01/17/17 13:21 Respiratory Rate 21 01/17/17 13:21 Blood Pressure 106/53 11/03/17 13:21 Pulse Oximetry (%) 97 01/17/17 13:21 Temperature 97.8 F 01/17/17 13:21 Pulse Rate 80 01/17/17 13:21 Respiratory Rate 21 01/17/17 13:21 Blood Pressure 106/53 01/17/17 13:21 Pulse Oximetry (%) 97 01/17/17 13:21 Weakness - MDM Narrative Medical decision making narrative: Blood pressure have been stable. He will be given blood transfusion and admitted observation - Lab Data Lab results reviewed: Yes I reviewed the patient's lab results. Result diagrams: 01/17/17 13:35 01/17/17 13:35 Lab Results 01/17/17 01/17/17 01/17/17 Range/Units 13:35 13:35 13:35 WBC 8.8 (4.5-11.0) K/mcL RBC 2.44 L (4.50-5.90) M/mcL Hgb 7.1 L (13.5-16.5) g/dL Hct 22.3 L (41.0-55.0) % MCV 91.4 (80.0-100.0) fL MCH 28.9 (26.0-34.0) pg MCHC 31.7 (31.0-36.0) g/dL RDW 16.5 H (11.5-14.5) % Plt Count 348 (140-440) K/mcL MPV 6.0 L (7.4-10.4) fL Gran % 64.0 (38.0-78.0) % Lymph % (Auto) 24.5 (15.5-49.0) % [place] % (Auto) 8.4 (1.0-12.0) % Eos % (Auto) 2.5 (0.0-7.0) % Baso % (Auto) 0.6 (0.0-2.0) % Gran # 5.6 (1.8-8.0) K/mcL Lymph # (Auto) 2.1 (1.5-4.8) K/mcL [place] # (Auto) 0.7 (0.1-0.9) K/mcL Eos # (Auto) 0.2 (0.0-0.7) K/mcL Baso # (Auto) 0.1 (0.0-0.3) K/mcL PT 14.9 H (11.9-14.5) sec INR 1.1 (0.9-1.1) Sodium 137 (133-145) mmol/L Potassium 4.7 (3.3-5.1) mmol/L Chloride 99 (96-108) mmol/L Carbon Dioxide 28 (22-30) mmol/L Anion Gap 10.0 (8-16) BUN 32 H (8-23) mg/dl Creatinine 1.5 H (0.7-1.2) mg/dl GFR Calculation 42 Glucose 198 H (70-105) mg/dL Calcium 8.8 (8.6-10.4) mg/dl Total Bilirubin < 0.2 (0.0-1.0) mg/dL AST 16 (0-37) U/l ALT 11 (0-40) U/l Alkaline Phosphatase 123 H (39-117) U/L Total Protein 6.1 (5.9-8.4) gm/dL Albumin 3.2 (3.2-5.2) gm/dL Globulin 2.9 (2.2-3.7) gm/dL Albumin/Globulin Ratio 1.1 (1.0-2.3) Disposition Pt seen by CREDIT ASSISTANT/PA only: Yes Clinical Impression: GI bleed, Anemia Disposition: Xfer As Outpt/Obs ([facility]) Condition: Fair Referrals: Ashely Dunham ARNP [Primary Care Provider] -
[2017-01-17 14:32] LABS: Basophils # (Auto) 0.1 K/mcL (0.0-0.3); Basophils % (Auto) 0.6 % (0.0-2.0); Eosinophils # (Auto) 0.2 K/mcL (0.0-0.7); Eosinophils % (Auto) 2.5 % (0.0-7.0); Lymphocytes # (Auto) 2.1 K/mcL (1.5-4.8); Lymphocytes % (Auto) 24.5 % (15.5-49.0); Mean Cell Volume 91.4 fL (80.0-100.0); Mean Corpuscular HGB Conc 31.7 g/dL (31.0-36.0); Mean Corpuscular Hemoglobin 28.9 pg (26.0-34.0); Monocytes # (Auto) 0.7 K/mcL (0.1-0.9); Monocytes % (Auto) 8.4 % (1.0-12.0); Platelet Count 348 K/mcL (140-440); RBC 2.44 M/mcL (4.50-5.90); Red Cell Distribution Width 16.5 % (11.5-14.5)
[2017-01-17 14:50] LABS: ALT/SGPT 11 U/l (0-40); Albumin 3.2 gm/dL (3.2-5.2); Albumin/Globulin Ratio 1.1 (1.0-2.3); Alkaline Phosphatase 123 U/L (39-117); Blood Urea Nitrogen 32 mg/dl (8-23)
[2017-01-17 15:33] LABS: Appearance,Urine CLEAR; Bacteria,Urine 0 /hpf (0); Bilirubin,Urine NEG (NEG); Color,Urine YELLOW; Glucose,Urine (UA) 50 mg/dL (NEG); Leukocyte Esterase,Urine NEG /uL (NEG); Mucus,Urine FEW /hpf (0); Nitrate,Urine NEG (NEG); Protein,Urine NEG (NEG); Specific Gravity,Urine 1.015 (1.000-1.035); Urine Blood NEG mg/dL (<0.03); Urine Hyaline Cast 9 /lpf (0-2); Urine RBC 6 /hpf (0-1); Urine Squamous Epithelial Cell 0 /hpf (0-4); Urine WBC < 1 /hpf (0-4); Urobilinogen,Urine NEG (NEG)
--- NOTE | 2017-01-17 15:50 | Internal Med History&Physical ---
Medical - H&P: HPI Patient information: Note initiated : 01/17/17 at 3:47 pm Service Date, if different from initiated Date: [] Patient: Roverto Marley 81 y/o M admitted on for Low H&H. Chief Complaint: [] History of present illness: Mr. Marley is a 81 year old and who was admitted here in August with severe anemia and apparent GI bleed. He had a subsequent upper endoscopy in November that showed a gastric ulcer which was not bleeding, as well as mild gastritis and esophagitis. Baseline hemoglobin looks to be around 9 or 10, with hematocrit of around 30. I believe he has had several transfusions since August, but hematocrit keeps drifting back down. Today he notes he has been feeling more and more fatigued for the last several weeks, and has noted mild dyspnea with exertion. He says he does have black stools, but they have been that way a long time, possibly due to iron therapy. Someone ordered blood work on him today, and hemoglobin came back at 6.9, so he was sent to the emergency room for evaluation. Vital signs are fairly stable, but the patient is felt at high risk for complications, so was admitted to observation, so we could transfuse him. Otherwise he denies recent fever or chills, headaches. He has been a little dizzy at times. He denies new eye or ear symptoms, sore throat or cough, chest pain or palpitations. He denies abdominal pain, nausea or vomiting, diarrhea or constipation. He does report some urinary urgency. Past medical history: Hypertension BPH Hyperlipidemia Anxiety Glaucoma Diabetes type 2 GERD History of chronic kidney disease stage III Lower extremity venous ulcers. Anemia, at least since March. Hydrocephalus, noted on head CT. Medications: Lantus 22 units nightly Flomax 0.4 mg p.o. nightly Atorvastatin 10 mg Sertraline 50 mg p.o. daily Senna 1-2 tabs daily Humalog sliding scale Omeprazole 20 mg p.o. twice daily Benadryl 25 mg nightly as needed Vitamin D 5000 units daily Travatan eyedrops 1 drop both eyes at bedtime Multivitamin 1 daily Methyl salicylate patch topical, daily, as needed Folate 1 mg daily Iron 325 mg twice daily Colace 100 mg p.o. twice daily Combigan eyedrops 0.2%0.5% 1 drop OU twice daily Cod liver oil ointment to skin daily as needed Calcium carbonate 500 mg nightly Vitamin C 500 mg twice daily Tylenol 650 mg p.o. every 4 hours as needed Allergies: Ertapenem, penicillin Social history: The patient lives at [facility]. He has denied tobacco, drug and alcohol use. He has a son and daughter nearby who are involved in his care. CODE STATUS was DNR during his last admission, and he thinks he will stay with this.. Family history: Sister had multiple sclerosis. He says his mother had cancer earlier in her life, but lived to age 93. His father around age 80 from a heart attack. All of his siblings are , and he cannot really recall their health history. Medical - H&P: Meds Home Medications Medication Instructions Recorded Confirmed Type Ascorbic Acid [Vitamin C] 500 mg PO BID 03/21/16 11/05/16 History Atorvastatin [Lipitor] 10 mg PO DAILY 03/21/16 11/05/16 History Sertraline [Zoloft] 50 mg PO DAILY 03/21/16 11/05/16 History Tamsulosin [Flomax] 0.4 mg PO DAILY 03/21/16 11/05/16 History Combigan 0.2%-0.5% Eye Drops 1 drp BOTH EYES BID 04/19/16 11/05/16 History Travatan Z Ophth Drops 1 drp BOTH EYES HS 04/19/16 09/20/16 History Acetaminophen [Tylenol] 650 mg PO Q4HP PRN 07/23/16 11/05/16 History Calcium Carbonate [Calcium] 500 mg PO CCHS 07/23/16 11/05/16 History Cod Liver Oil/Zinc Oxide [Desitin 1 gm TP DAILY PRN 07/23/16 11/05/16 History Diaper Rash 40% Paste] Docusate Sodium [Colace] 100 mg PO BID 07/23/16 11/05/16 History Ferrous Sulfate [Iron] 325 mg PO BIDCC 07/23/16 11/05/16 History Folic Acid 1 mg PO DAILY 07/23/16 11/05/16 History Methyl Salicylate/Menth/Camph 1 each TP DAILYP PRN 07/23/16 11/05/16 History [Salonpas Patch] Multivitamin [Multi-Day Vitamins] 1 each PO DAILY 07/23/16 11/05/16 History Omeprazole 20 mg PO BIDAC 07/23/16 11/05/16 History Sennosides/Docusate Sodium 1 - 2 each PO DAILY 07/23/16 11/05/16 History [Senokot-S Tablet] Vitamin D3 5,000 unit PO DAILY 07/23/16 11/05/16 History Accu-Chek 1 each FS ACHS strip 09/13/16 11/05/16 Rx Insulin Lispro [Humalog] See Protocol SQ ACHS #1 ml 09/13/16 11/05/16 Rx Magnesium Hydroxide [Milk of 30 ml PO DAILYP PRN 09/13/16 Rx Magnesia] Insulin Glargine, Human [Lantus] 22 unit SQ HS 11/05/16 11/05/16 History Allergies Allergy/AdvReac Type Severity Reaction Status Date / Time Penicillins Allergy Unknown Unknown Verified 10/08/16 00:30 Ertapenem [From Invanz] AdvReac Mild Weakness Verified 10/08/16 00:30 Medical - H&P: Exam - Constitutional Vitals: Temp Pulse Resp BP Pulse Ox 97.8 F 80 21 106/53 97 01/17/17 13:21 01/17/17 13:21 01/17/17 13:21 01/17/17 13:21 01/17/17 13:21 On exam, he is a pale elderly white male, lying in bed. He is in no acute distress, but does appear tired. Head: Normocephalic, atraumatic. Ears: Canals and TMs are clear. Eyes: Pupils are equal, but not especially reactive. There appear to be IOLs in place., EOMI, anicteric. Pharynx: Is clear. Teeth are in good condition. Mucosa is somewhat dry. Neck: Appears supple, without obvious lymphadenopathy, JVD, thyromegaly, bruits. Cardiac exam: Shows regular rate and rhythm, with normal S1 and S2. No murmurs , rubs, gallops are noted. Lungs: Show a few crackles at the bases, but are otherwise clear, without rales , rhonchi, wheezes. Abdomen: Is soft and nontender, with normoactive bowel sounds. No masses are apparent. Extremities: Show minimal edema, without cyanosis or clubbing. Neurologic exam: Is grossly nonfocal. Patient is alert and oriented, although a bit hard of hearing. Mood and affect appear normal. Motor exam is grossly nonfocal. Skin exam: Shows a rather large right skin abrasion, which he thinks he got from bumping into something. Medical - H&P: Reslt - Labs CBC & Chem 7: 01/17/17 13:35 01/17/17 13:35 Labs: Short CBC 01/17/17 Range/Units 13:35 WBC 8.8 (4.5-11.0) K/mcL Hgb 7.1 L (13.5-16.5) g/dL Hct 22.3 L (41.0-55.0) % Plt Count 348 (140-440) K/mcL BMP 01/17/17 13:35 Sodium 137 Potassium 4.7 Chloride 99 Carbon Dioxide 28 BUN 32 H Creatinine 1.5 H Glucose 198 H Calcium 8.8 Liver Function 01/17/17 Range/Units 13:35 Total Bilirubin < 0.2 (0.0-1.0) mg/dL AST 16 (0-37) U/l ALT 11 (0-40) U/l Alkaline Phosphatase 123 H (39-117) U/L Albumin 3.2 (3.2-5.2) gm/dL Urine 01/17/17 Range/Units 14:42 Urine Color Yellow Urine Appearance Clear Urine pH 6.0 (5.0-9.0) Ur Specific [place] 1.015 (1.000-1.035) Urine Protein Neg (NEG) mg/dL Urine Glucose (UA) 50 A (NEG) mg/dL January 17: Pro time is 14.9, with INR of 1.1. Medical - H&P: A/P (1) DM type 2 (diabetes mellitus, type 2) Current visit: Yes Status: Chronic (2) Gastrointestinal bleeding Current visit: Yes Status: Acute (3) Anemia Current visit: Yes Status: Acute - Narrative A/P Narrative: #1. GI. He has probably chronic GI bleed. He has significant anemia, which appears to be worsening since October. However, hemoglobin has varied from 7.9-10.9 over the last 3 months. -Transfuse 2 units packed red blood cells. -GI was consulted from ER. Apparently they suggested he come in for colonoscopy , as he recently had an upper endoscopy done. 2. CODE STATUS: Previous CODE STATUS was DNR. 3. DVT prophylaxis: SCDs. 5. Endocrine. Type 2 diabetes. Manage with insulin. 6. Glaucoma. Continue current eyedrops. 8. BPH. Continue Flomax. 9. Anxiety. Continue sertraline. Use as needed Ativan if necessary.. This visit is taken approximately 50 minutes today, to review the patient's old records, review case with the ER MD, interview and examine the patient, and write orders.
[2017-01-17] MEDS ORDERED: DEXTROSE 50% 50 ML VIAL IV PRN (16:34)
[2017-01-17] MEDS ORDERED: MAGNESIUM HYDROXIDE 30 ML ORAL.SUSP PO PRN (16:34)
[2017-01-17] MEDS ORDERED: DEXTROSE 31 GM ORAL.SUSP PO PRN (16:34)
[2017-01-17] MEDS ORDERED: ONDANSETRON 4 MG/2 ML VIAL IV PRN (16:34)
[2017-01-17] MEDS ORDERED: ACETAMINOPHEN 325 MG TABLET PO PRN (16:34)
[2017-01-17] MEDS: INSULIN LISPRO 1 UNIT/0.01 ML UNIT SQ SCH ×2 (18:47→20:52)
[2017-01-18] MEDS: 0.9 % SODIUM CHLORIDE 10 ML SYRINGE IV SCH ×2 (00:45→06:04)
[2017-01-18 06:00] LABS: ALT/SGPT 11 U/l (0-40); Albumin 2.8 gm/dL (3.2-5.2); Albumin/Globulin Ratio 0.9 (1.0-2.3); Alkaline Phosphatase 120 U/L (39-117); Bilirubin,Direct 0.3 mg/dL (0.0-0.3); Blood Urea Nitrogen 30 mg/dl (8-23); Gamma Glutamyl Transpeptidase 36 U/L (8-61); Uric Acid 4.5 mg/dL (2.5-8.0)
[2017-01-18] MEDS ORDERED: PANTOPRAZOLE 40 MG TABLET PO SCH (07:30)
[2017-01-18] MEDS: INSULIN LISPRO 1 UNIT/0.01 ML UNIT SQ SCH ×2 (08:24→12:17)
--- NOTE | 2017-01-18 12:31 | Discharge Summary ---
Medical - DS: Prov Patient information: Note initiated : 01/18/17 at 12:31 pm Service Date, if different from initiated Date: [] Patient: Roverto Marley 81 y/o M admitted on 01/17/17 for Low H&H. Chief Complaint: [] Date of admission: 01/17/17 16:24 Discharge date: 01/18/17 Primary care physician: Ashely Dunham Admitting clinician: Berna Douglas Consults: 01/17/17 15:35 Consult to Physician [CONS] Stat Comment: Consulting Provider: Berna Douglas Reason For Exam: Physician to Consult Attending physician on discharge: Berna Douglas Medical - DS: Meds - Discharge Medications Active and Home Medications: Discharge medications: Same as previous home Medications: Ascorbic Acid [Vitamin C] 500 mg PO BID 03/21/16 [History Confirmed 01/18/17 Last Taken 01/17/17 08:00] Atorvastatin [Lipitor] 10 mg PO DAILY 03/21/16 [History Confirmed 01/18/17 Last Taken 01/17/17 08:00] Sertraline [Zoloft] 50 mg PO DAILY 03/21/16 [History Confirmed 01/18/17 Last Taken 01/17/17 08:00] Tamsulosin [Flomax] 0.4 mg PO DAILY 03/21/16 [History Confirmed 01/18/17 Last Taken 01/17/17 08:00] Combigan 0.2%-0.5% Eye Drops 1 drp BOTH EYES BID 04/19/16 [History Confirmed 07/01 Last Taken 01/15/17 08:00] Travatan Z Ophth Drops 1 drp BOTH EYES HS 04/19/16 [History Confirmed 01/18/17 Last Taken 11/14/16] Acetaminophen [Tylenol] 650 mg PO Q4HP PRN 07/23/16 [History Confirmed 01/18/17 Last Taken 11/14/16] Calcium Carbonate [Calcium] 500 mg PO CCHS 07/23/16 [History Confirmed 01/18/17 Last Taken 01/16/17 20:00] Cod Liver Oil/Zinc Oxide [Desitin Diaper Rash 40% Paste] 1 gm TP DAILY PRN 07/23 [History Confirmed 01/18/17 Last Taken 10/28/16] Docusate Sodium [Colace] 100 mg PO BID 07/23/16 [History Confirmed 01/18/17 Last Taken 01/17/17 08:00] Ferrous Sulfate [Iron] 325 mg PO BIDCC 07/23/16 [History Confirmed 01/18/17 Last Taken 01/17/17 08:00] Folic Acid 1 mg PO DAILY 07/23/16 [History Confirmed 01/18/17 Last Taken 08:00] Methyl Salicylate/Menth/Camph [Salonpas Patch] 1 each TP DAILYP PRN 07/23/16 [ History Confirmed 01/18/17 Last Taken 11/14/16] Multivitamin [Multi-Day Vitamins] 1 each PO DAILY 07/23/16 [History Confirmed Last Taken 01/17/17 08:00] Omeprazole 20 mg PO BIDAC 07/23/16 [History Confirmed 01/18/17 Last Taken 07:30] Sennosides/Docusate Sodium [Senokot-S Tablet] 1 - 2 each PO DAILY 07/23/16 [ History Confirmed 01/18/17 Last Taken 01/17/17 08:00] Vitamin D3 5,000 unit PO DAILY 07/23/16 [History Confirmed 01/18/17 Last Taken 01/17/17 08:00] Accu-Chek 1 each FS ACHS strip 09/13/16 [Rx Confirmed 01/18/17 Last Taken 01/16 18:00] Insulin Lispro [Humalog] See Protocol SQ ACHS #1 ml 09/13/16 [Rx Confirmed 01/18 Last Taken 01/16/17 18:00] Magnesium Hydroxide [Milk of Magnesia] 30 ml PO DAILYP PRN 09/13/16 [Rx Confirmed 01/18/17 Last Taken 11/14/16] Insulin Glargine, Human [Lantus] 22 unit SQ HS 11/05/16 [History Confirmed 01/18 Last Taken 01/16/17 20:00] diphenhydrAMINE [Benadryl] 25 mg PO HSP PRN 01/18/17 [History Confirmed Last Taken Unknown] Medical - DS: Hosp Hospital course: Mr. Marley is a 81 year old M January 17, 2017: History of present illness: Mr. Marley is a 81 year old and who was admitted here in August with severe anemia and apparent GI bleed. He had a subsequent upper endoscopy in November that showed a gastric ulcer which was not bleeding, as well as mild gastritis and esophagitis. Baseline hemoglobin looks to be around 9 or 10, with hematocrit of around 30. I believe he has had several transfusions since August, but hematocrit keeps drifting back down. Today he notes he has been feeling more and more fatigued for the last several weeks, and has noted mild dyspnea with exertion. He says he does have black stools, but they have been that way a long time, possibly due to iron therapy. Someone ordered blood work on him today, and hemoglobin came back at 6.9, so he was sent to the emergency room for evaluation. Vital signs are fairly stable, but the patient is felt at high risk for complications, so was admitted to observation, so we could transfuse him. Otherwise he denies recent fever or chills, headaches. He has been a little dizzy at times. He denies new eye or ear symptoms, sore throat or cough, chest pain or palpitations. He denies abdominal pain, nausea or vomiting, diarrhea or constipation. He does report some urinary urgency. January 18: Hospital course: Patient was admitted and transfused 2 units of packed red blood cells. His color is much improved today. He feels quite a bit better, and feels ready to go home. He has had no other worrisome symptoms overnight. Today, he denies fever chills, chest pain or palpitations, shortness of breath, abdominal pain, nausea or vomiting, diarrhea or constipation. On exam, he is in no acute distress. The color in his face is much improved. Vital signs are normal Neck is supple without obvious JVD. Exam shows regular rate and rhythm. Lungs are clear to auscultation. Abdomen is soft and nontender. Extremities show no edema. Neurologic exam is grossly nonfocal. Assessment and plan: #1. GI. He has probably chronic GI bleed. He has significant anemia, which appears to be worsening since October. However, hemoglobin has varied from 7.9-10.9 over the last 3 months. -Transfused 2 units packed red blood cells. -GI was consulted from ER. I believe they spoke with Dr. Weeks. I have not been able to contact him this morning, but briefly reviewed the patient's case with Dr. Lyles, who is on-call. He agreed that the patient appears fine to go home. He can return to see his oracle software engineer next week for an outpatient colonoscopy, which was already being planned. Recent upper endoscopy did not give a definite reason for recurrent anemia. 2. CODE STATUS: Previous CODE STATUS was DNR. 3. DVT prophylaxis: SCDs. 5. Endocrine. Type 2 diabetes. Manage with insulin. 6. Glaucoma. Continue current eyedrops. 8. BPH. Continue Flomax. 9. Anxiety. Continue sertraline. Use as needed Ativan if necessary.. Discharge diagnosis: Recurrent blood loss anemia, of uncertain etiology. - Time Spent with Patient Total time spent providing and/or coordinating discharge services: Greater than 30 minutes Medical - DS: Exam - Constitutional Vitals: Vital Signs Temp Pulse Pulse Resp BP BP BP 01/18/17 08:00 97.2 F 16 115/67 01/18/17 04:00 97.5 F 96 H 16 147/84 01/18/17 00:00 97.7 F 89 16 154/79 01/17/17 20:00 97.8 F 80 18 152/77 01/17/17 16:47 97.8 F 76 15 106/53 01/17/17 16:24 97.3 F 20 105/32 01/17/17 16:15 76 15 138/69 01/17/17 15:45 75 15 126/55 01/17/17 15:15 77 16 127/64 01/17/17 14:45 77 17 131/62 01/17/17 14:15 75 19 116/62 01/17/17 13:47 78 34 H 113/52 01/17/17 13:21 97.8 F 80 21 106/53 Pulse Ox 01/18/17 08:00 99 01/18/17 04:00 94 01/18/17 00:00 95 01/17/17 20:00 94 01/17/17 16:47 96 01/17/17 16:24 94 01/17/17 16:15 96 01/17/17 15:45 97 01/17/17 15:15 96 01/17/17 14:45 97 01/17/17 14:15 98 01/17/17 13:47 96 01/17/17 13:21 97 Intake and Output 01/17/17 01/18/17 01/18/17 21:59 05:59 13:59 Intake Total 1635 / 1635 120 / 120 Output Total 153 / 153 1151 / 1151 151 / 151 Balance 1482 / 1482 -1031 / -1031 -151 / -151 Intake: IV 1000 / 1000 Lactated Ringers 1,000 ml @ 1000 / 1000 Wide Open IV BOLUS ONE Rx#: [id number] Oral 120 / 120 Blood Product 635 / 635 Output: Void Amount 150 / 150 1150 / 1150 150 / 150 # of times incontinent of urine 3 / 3 Other: # of times incontinent of 1 1 Bowels Weight 180 lb Medical - DS: Data Labs on day of discharge: Labs from last 24 hours 01/18/17 01/18/17 01/18/17 07:33 04:10 00:45 WBC RBC Hgb 10.6 L 10.6 L Hct 31.6 L 31.8 L MCV MCH MCHC RDW Plt Count MPV Gran % Lymph % (Auto) [place] % (Auto) Eos % (Auto) Baso % (Auto) Gran # Lymph # (Auto) [place] # (Auto) Eos # (Auto) Baso # (Auto) PT INR Sodium 136 Potassium 4.3 Chloride 99 Carbon Dioxide 26 Anion Gap 11.0 BUN 30 H Creatinine 1.2 GFR Calculation 56 Glucose 156 H Uric Acid 4.5 Calcium 8.6 Phosphorus 3.1 Magnesium 2.0 Total Bilirubin 1.2 H Direct Bilirubin 0.3 GGT 36 AST 17 ALT 11 Alkaline Phosphatase 120 H Lactate Dehydrogenase 320 H Total Protein 5.8 L Albumin 2.8 L Globulin 3.0 Albumin/Globulin Ratio 0.9 L Triglycerides 60 Urine Color Urine Appearance Urine pH Ur Specific [place] Urine Protein Urine Glucose (UA) Urine Ketones Urine Occult Blood Urine Nitrate Urine Bilirubin Urine Urobilinogen Ur Leukocyte Esterase Urine RBC Urine WBC Ur Squamous Epith Cells Urine Bacteria Hyaline Casts Urine Mucus Ur Culture Indicated? 01/17/17 01/17/17 01/17/17 14:42 13:35 13:35 WBC RBC Hgb Hct MCV MCH MCHC RDW Plt Count MPV Gran % Lymph % (Auto) [place] % (Auto) Eos % (Auto) Baso % (Auto) Gran # Lymph # (Auto) [place] # (Auto) Eos # (Auto) Baso # (Auto) PT 14.9 H INR 1.1 Sodium 137 Potassium 4.7 Chloride 99 Carbon Dioxide 28 Anion Gap 10.0 BUN 32 H Creatinine 1.5 H GFR Calculation 42 Glucose 198 H Uric Acid Calcium 8.8 Phosphorus Magnesium Total Bilirubin < 0.2 Direct Bilirubin GGT AST 16 ALT 11 Alkaline Phosphatase 123 H Lactate Dehydrogenase Total Protein 6.1 Albumin 3.2 Globulin 2.9 Albumin/Globulin Ratio 1.1 Triglycerides Urine Color Yellow Urine Appearance Clear Urine pH 6.0 Ur Specific [place] 1.015 Urine Protein Neg Urine Glucose (UA) 50 A Urine Ketones Neg Urine Occult Blood Neg Urine Nitrate Neg Urine Bilirubin Neg Urine Urobilinogen Neg Ur Leukocyte Esterase Neg Urine RBC 6 H Urine WBC < 1 Ur Squamous Epith Cells 0 Urine Bacteria 0 Hyaline Casts 9 H Urine Mucus Few Ur Culture Indicated? No 01/17/17 13:35 WBC 8.8 RBC 2.44 L Hgb 7.1 L Hct 22.3 L MCV 91.4 MCH 28.9 MCHC 31.7 RDW 16.5 H Plt Count 348 MPV 6.0 L Gran % 64.0 Lymph % (Auto) 24.5 [place] % (Auto) 8.4 Eos % (Auto) 2.5 Baso % (Auto) 0.6 Gran # 5.6 Lymph # (Auto) 2.1 [place] # (Auto) 0.7 Eos # (Auto) 0.2 Baso # (Auto) 0.1 PT INR Sodium Potassium Chloride Carbon Dioxide Anion Gap BUN Creatinine GFR Calculation Glucose Uric Acid Calcium Phosphorus Magnesium Total Bilirubin Direct Bilirubin GGT AST ALT Alkaline Phosphatase Lactate Dehydrogenase Total Protein Albumin Globulin Albumin/Globulin Ratio Triglycerides Urine Color Urine Appearance Urine pH Ur Specific [place] Urine Protein Urine Glucose (UA) Urine Ketones Urine Occult Blood Urine Nitrate Urine Bilirubin Urine Urobilinogen Ur Leukocyte Esterase Urine RBC Urine WBC Ur Squamous Epith Cells Urine Bacteria Hyaline Casts Urine Mucus Ur Culture Indicated? EKG on January 17 showed probable normal sinus rhythm, left axis deviation and nonspecific intraventricular conduction delay, no significant change from September 102016. Medical - DS: A/P - Patient/Caregiver Discharge Instructions Activity: increase activity as tolerated Diet: Low Sodium (2gm) Additional Instructions: Please follow-up with your oracle software engineer this week, regarding scheduling a colonoscopy. Please call us for any signs of recurrent bleeding, weakness, shortness of breath or chest pain. Other Amb Orders: Complete Blood Count w/o Diff Time Frame: 2 Days, Location: Determined By Patient - Problem Maintenance (1) DM type 2 (diabetes mellitus, type 2) Status: Chronic (2) Gastrointestinal bleeding Status: Acute Qualifiers: (3) Anemia Status: Acute - Follow up Plan Follow up with: Ashely Dunham ARNP [Primary Care Provider] - Disposition: Home, Self-Care Prognosis: Fair Rehab Potential: Fair Overall status at discharge: patient is progressing back to baseline Medical - DS: Qual - VTE Deep Vein Thrombosis/Pulmonary Embolism Present on Admission: No
== END 2017-01-18 13:50 | disposition home or self-care (01) ==
LOC: ED 13:21 → MEDSUR 13:21
PROVIDERS: ADMIT Internal Medicine; ATTEND Internal Medicine